=== PATIENT | female | born 1990 | race Two or more races ===

== ENCOUNTER 2016-12-08 21:59 | Emergency (ER) | payer MEDICAID ==
[~2016-12-08] VITALS: Ht 157.5 cm; Wt 54.4 kg
[2016-12-08 22:04] VITALS: BP 132/88
== END 2016-12-09 01:51 | disposition left against medical advice (07) ==
LOC: EDBD 21:59 → ER 22:02
DX: M25.572 Pain in left ankle and joints of left foot (principal); X58.XXXA Exposure to other specified factors, initial encounter; Y93.02 Activity, running; Y99.8 Other external cause status; Y92.59 Other trade areas as the place of occurrence of the external cause; Z53.21 Procedure and treatment not carried out due to patient leaving prior to being seen by health care provider
CPT/HCPCS: 81025

== ENCOUNTER 2018-09-19 11:23 | Inpatient (IN) | payer MEDICAID ==
[~2018-09-19] VITALS: Ht 165.1 cm; Wt 52.3 kg
[~2018-09-19 11:23] MED LIST: CALC0.5C PO; LEVO112T4 PO; MAGN400T5 PO
[2018-09-19] MEDS ORDERED: ONDANSETRON HCL 4 MG/2 ML VIAL IV ONE (11:45)
[2018-09-19] MEDS ORDERED: MORPHINE SULFATE 4 MG/ML SYR/VIAL IV ONE ×2 (11:45→14:30)
[2018-09-19] MEDS ORDERED: SODIUM CHLORIDE 0.9% 1,000 ML IV ONE (11:45)
[2018-09-19 12:38] LABS: Basophils # (auto) 0 uL; Eosinophils # (auto) 0.1 uL; Hemoglobin 11.6 g/dL (12.2-16.2); Monocytes # (auto) 0.2 uL; Neutrophils # (auto) 2.3 uL; White Blood Cell 4.9 10^3/uL (4.4-10.8)
[2018-09-19 12:41] LABS: Eosinophils % (auto) 1.2 % (0.0-7.0); Hematocrit 36.1 % (36.0-46.0); Lymphocytes # (auto) 2.4 uL; Lymphocytes % (auto) 48.1 % (10.0-50.0); Mean Corpuscular Hemoglobin 24.9 pg (28.0-32.0); Mean Corpuscular Volume 77.7 fL (80.0-100.0); Monocytes % (auto) 3.8 % (0.0-12.0); Neutrophils % (auto) 45.9 % (37.0-80.0); Nucleated Red Blood Cells % 0.1 %; Platelet Count (auto) 187 10^3/uL (140-450); Red Blood Cells 4.65 10^6/uL (4.0-5.20); Red Cell Distribution Width 16.9 % (11.8-14.3)
[2018-09-19 13:53] LABS: Chloride 103 mmol/L (98-107); Potassium 3.6 mmol/L (3.5-5.1); Sodium 140 mmol/L (136-145)
[2018-09-19 14:14] LABS: Alanine Aminotransferase 23 U/L (13-56); Alkaline Phosphatase 127 U/L (45-117); Anion Gap 14 (5-15); Aspartate Aminotransferase 22 U/L (15-37); BUN/Creatinine Ratio 14.5; Bilirubin, Total 0.5 mg/dL (0.2-1.0); Blood Urea Nitrogen 12 mg/dL (7-18); Carbon Dioxide 23 mmol/L (21-32); GFR African American 104 mL/min; GFR Non-African American 86 mL/min; Glucose 78 mg/dL (74-106); Total Protein 7.5 g/dL (6.4-8.2)
[2018-09-19 14:22] LABS: Calcium 5.9 mg/dL (8.5-10.1)
[2018-09-19] MEDS ORDERED: CALCIUM GLUC 4.65meq/50ml D5AE 50 ML IV ONE ×2 (14:30→18:15)
[2018-09-19] MEDS ORDERED: MORPHINE SULF INJ 2 MG/ML SYRINGE 1ML IV PRN (15:00)
[2018-09-19] MEDS ORDERED: LEVOTHYROXINE SODIUM 50 MCG TAB PO ONE (15:00)
[2018-09-19] MEDS: CALCIUM ACETATE 667 MG CAP PO SCH ×2 (18:58→22:06)
[2018-09-19 22:00] VITALS: BP 101/61
[2018-09-19] MEDS ORDERED: CALCITRIOL PO SCH (22:00)
[2018-09-19] MEDS ORDERED: [UNRECOGNIZED DRUG - CODE] PO (23:41)
[2018-09-19 23:54] VITALS: BP 101/61
--- NOTE | 2018-09-20 00:02 | NUR ---
Telemetry admit from [facility] admitted to Telemetry unit after SBAR received. Patient oriented to Ashley Nogueira RN primary RN, unit, room, bed, and unit policies regarding patient care and visiting hours. Patient now on continuous telemetry monitoring, tele box # 30 and telemetry reading on arrival to unit is SR. Patient weighed by bedscale and encouraged to call if they need something. All questions and concerns addressed, patient verbalized understanding, will continue to monitor Note: []
--- NOTE | 2018-09-20 00:10 | NUR ---
Patient complained of tingling sensation that is coming back again on her right arm. Paged hospitalist by MARGARET Francis, awaiting call back
--- NOTE | 2018-09-20 00:55 | NUR ---
Hospitalist Simeon called back, received order for Stat BMP. Informed Lab of the new order
[2018-09-20 02:00] LABS: BUN/Creatinine Ratio 11.4; Calcium 6.2 mg/dL (8.5-10.1); Potassium 3.6 mmol/L (3.5-5.1)
--- NOTE | 2018-09-20 02:00 | NUR ---
Paged hospitalist to relay lab result, awaiting call back
--- NOTE | 2018-09-20 02:45 | NUR ---
Hospitalist Simeon called back and updated on patient's status. Relayed result of Calcium, received new order to give 2 gm Calcium Gluconate IV x1, acknowledged and read back, will carry out order
[2018-09-20] MEDS ORDERED: CALCIUM GLUC 4.65meq/50ml D5AE 50 ML IV ONE ×3 (03:00→23:15)
[2018-09-20 05:00] VITALS: BP 94/64
[2018-09-20] MEDS: LEVOTHYROXINE SODIUM 50 MCG TAB PO SCH (05:50)
--- NOTE | 2018-09-20 08:00 | NUR ---
Morning note patient resting in bed with eyes closed, respirations even and unlabored, no distress noted. Fall precautions in place with call light within reach. Will continue to monitor q1hr & PRN.
[2018-09-20] MEDS: MAGNESIUM OXIDE 400 MG TAB PO SCH (09:53)
[2018-09-20] MEDS: CALCIUM ACETATE 667 MG CAP PO SCH (09:54)
[2018-09-20 11:05] VITALS: BP 100/52
--- NOTE | 2018-09-20 11:21 | NUR ---
Spoke with hospitalist - Dr. Watson updated MD. MD verbalized understanding. Orders received and read back to verify.
[2018-09-20] MEDS ORDERED: MORPHINE SULF INJ 2 MG/ML SYRINGE 1ML IV PRN (11:30)
--- NOTE | 2018-09-20 11:54 | NUR ---
MD was at bedside - Dr. Vanessa VALLADARES to place orders. Patient to follow up with MD outpatient. Patient aware.
[2018-09-20] MEDS ORDERED: ERGOCALCIFEROL 50,000 UNIT(1.25MG) CAP PO SCH ×2 (12:00→12:15)
[2018-09-20] MEDS: HYDROcodone-ACET 5/325MG TAB PO PRN (12:12)
[2018-09-20 15:06] VITALS: BP 93/65
--- NOTE | 2018-09-20 15:50 | NUR ---
was at bedside - Dr. Watson This RN was at bedside.
[2018-09-20] MEDS: CALCIUM CARB 500 MG CHEW TAB PO SCH ×2 (16:02→22:06)
[2018-09-20 16:59] VITALS: BP 97/59
--- NOTE | 2018-09-20 18:47 | NUR ---
closing note Patient resting in bed with even and unlabored respirations, no distress noted. Visitor at bedside.
--- NOTE | 2018-09-20 19:15 | NUR ---
Care endorsed to MARGARET Roberts.
--- NOTE | 2018-09-20 20:45 | NUR ---
Patient is complaining of tingling sensation on both arms. Patient and family are complaining about the Calcium dose, and that she's not getting the same dose of 8000mg a day. Will refer to
[2018-09-20] MEDS ORDERED: CALC500C3 PO (20:53)
[2018-09-20] MEDS: NITROGLYCERIN 0.4 MG SL TAB SL PRN ×3 (21:55→22:15)
--- NOTE | 2018-09-20 21:55 | NUR ---
Patient complained of chest pain and nausea and continuous tingling sensation on both arms. V/S taken and EKG done. Paged Dr. Watson, awaiting call back
[2018-09-20 22:00] VITALS: BP 103/70
[2018-09-20] MEDS ORDERED: CALCIUM CARB 500 MG CHEW TAB PO SCH (22:00)
--- NOTE | 2018-09-20 22:00 | NUR ---
Spoke to Dr. Watson and updated on patient's status. Received new order at this time, read back and acknowledged, will carry out order
--- NOTE | 2018-09-20 22:15 | NUR ---
Chest pain of patient relieved after 3 doses of NTG, will continue to monitor
[2018-09-20] MEDS: ONDANSETRON HCL 4 MG/2 ML VIAL IV PRN (22:30)
[2018-09-20 22:43] LABS: Anion Gap 12 (5-15); BUN/Creatinine Ratio 13.3; Blood Urea Nitrogen 12 mg/dL (7-18); Calcium 6.1 mg/dL (8.5-10.1); Carbon Dioxide 26 mmol/L (21-32); Chloride 103 mmol/L (98-107); GFR African American 95 mL/min; GFR Non-African American 78 mL/min; Glucose 87 mg/dL (74-106); Potassium 3.6 mmol/L (3.5-5.1); Sodium 141 mmol/L (136-145)
--- NOTE | 2018-09-20 23:00 | NUR ---
Spoke to Dr. Watson and updated on patient's status and latest lab results. Received new order to give 1 bag of Calcium Gluconate x1 at this time, acknowledged and read back, will continue care
[2018-09-21] VITALS (9 sets, daily range): BP systolic 94–113; BP diastolic 61–81
[2018-09-21] MEDS: NITROGLYCERIN 0.4 MG SL TAB SL PRN (00:55)
[2018-09-21] MEDS: LEVOTHYROXINE SODIUM 50 MCG TAB PO SCH (06:13)
[2018-09-21 07:14] LABS: Albumin 3.5 g/dL (3.4-5.0); Anion Gap 9 (5-15); Blood Urea Nitrogen 15 mg/dL (7-18); Calcium 6.1 mg/dL (8.5-10.1); Carbon Dioxide 26 mmol/L (21-32); Chloride 105 mmol/L (98-107); Glucose 84 mg/dL (74-106); Potassium 3.7 mmol/L (3.5-5.1); Sodium 140 mmol/L (136-145)
[2018-09-21 07:22] LABS: Alanine Aminotransferase 20 U/L (13-56); Alkaline Phosphatase 113 U/L (45-117); Aspartate Aminotransferase 25 U/L (15-37); BUN/Creatinine Ratio 17.9; Bilirubin, Total 0.3 mg/dL (0.2-1.0); GFR African American 102 mL/min; GFR Non-African American 85 mL/min; Phosphorus 6.1 mg/dL (2.5-4.90); Total Protein 7.1 g/dL (6.4-8.2)
[2018-09-21] MEDS ORDERED: CALCITRIOL 0.25 MCG CAP PO SCH (10:00)
[2018-09-21] MEDS: MAGNESIUM OXIDE 400 MG TAB PO SCH (10:44)
[2018-09-21] MEDS ORDERED: CALCIUM GLUC 4.65meq/50ml D5AE 50 ML IV ONE ×4 (11:00→17:00)
--- NOTE | 2018-09-21 15:49 | NUR ---
CALCIUM (LABS) ORDERED PER DR. MEDRANO
--- NOTE | 2018-09-21 16:00 | NUR ---
Charge, Claudia ROBLES, notified of the patient's recurring tetany. Claudia to call Dr. Watson for orders for possible transfer to ICU for calcium drip
[2018-09-21] MEDS: CALCIUM CARB 500 MG CHEW TAB PO SCH ×2 (16:05→19:42)
--- NOTE | 2018-09-21 16:30 | NUR ---
Received orders from DR. Mendez for repeat calcium glucanate x2. Will place orders, administer and continue to monitor.
[2018-09-21] MEDS: ONDANSETRON HCL 4 MG/2 ML VIAL IV PRN (16:33)
--- NOTE | 2018-09-21 17:20 | NUR ---
Report given to HOLE DIGGER OPERATORCoco
--- NOTE | 2018-09-21 17:20 | NUR ---
REPORT Received report from Twyla ROBLES, who will bring this patient down to room 103.
--- NOTE | 2018-09-21 18:00 | NUR ---
Patient to ICU bed 103. Transfer without incident. Patient stable during transfer.
--- NOTE | 2018-09-21 18:00 | NUR ---
RECEIVED PATIENT Received patient into room 103 patient transferred to ICU bed and connected to bedside monitor. Patient alert and oriented X 4, speech appropriate, with right hand clenched and unable to squeeze hand. Left hand customer engineer strong. Sinus rhythm in the 70's on bedside monitor, pulses palpable on upper/lower extremities with no edema observed. Patient on room air sating in the high 90's. Abdomen soft, nontender, and non distended with bowel sounds present. IV to the right forearm 22g: good blood return and flushes easily infusing Calcium gluconate per MD orders. Skin intact. Bed at lowest position and call light within reach. Will continue to monitor patient closely.
[2018-09-21] MEDS: CALCIUM GLUC 4.65meq/50ml D5AE 50 ML IV SCH ×3 (19:43→22:48)
--- NOTE | 2018-09-21 20:00 | NUR ---
OPEN ASSUMED CARE OF FEMALE PT A&O X 4. PT SB MID 50'S TO SR 60'S ON EXERCISER HORSE. PT ON ROOM AIR SATS 97%. PT NOW HAS FULL ROM AND GOOD HAND MONEY MARKET DEALER VINICIUS. DENIES ANY NUMBNESS OR TINGLING. PT CURRENTLY RECEIVING CA GLUCONATE IVP INFUSING INTO 22 G IV TO R. F/A B&P. PT AMBULATES TO BATHROOM WITH STANDBY ASSIST. PT DENIES PAIN. BED IN LOWEST LOCKED POSITION. SIDE RAILS UP X 2. PT EDUCATED TO USE CALL LIN PRIOR TO AMBULATION. WILL CONTINUE TO MONITOR.
--- NOTE | 2018-09-21 20:45 | NUR ---
TO UNIT FOR VISIT.
--- NOTE | 2018-09-21 21:00 | NUR ---
NUTRITION PT STATES SHE HAS HAD VERY POOR APPETITE PAST COUPLE OF DAYS. PT BROUGHT FOOD PREFERENCE TO PT. PT CONSUMED 75% OF MEAL WITH NO COMPLAINTS OF NAUSEA.
--- NOTE | 2018-09-21 21:50 | NUR ---
ACTIVITY PT AMBULATED WITH ASSIST TO TOILET. PT STATES ABLE TO URINATE WITH NO DIFFICULTY. PT ASSISTED BACK TO BED. RECONNECTED TO MONITORING. CALL LIN IN REACH. PT AT BEDSIDE.
[2018-09-21] MEDS: CALCITRIOL 0.25 MCG CAP PO SCH (22:17)
[2018-09-22] VITALS (23 sets, daily range): BP systolic 80–118; BP diastolic 44–71
[2018-09-22] MEDS: CALCIUM GLUC 4.65meq/50ml D5AE 50 ML IV SCH (00:35)
--- NOTE | 2018-09-22 01:30 | NUR ---
REST PT SLEEPING RR EVEN UNLABORED.
[2018-09-22 01:59] LABS: Albumin 3.7 g/dL (3.4-5.0); BUN/Creatinine Ratio 12.1; Calcium 8.6 mg/dL (8.5-10.1); Potassium 3.7 mmol/L (3.5-5.1)
[2018-09-22 02:02] LABS: Bilirubin, Total 0.5 mg/dL (0.2-1.0); Total Protein 7.4 g/dL (6.4-8.2)
--- NOTE | 2018-09-22 05:30 | NUR ---
DR PASCAL CALL DR PASCAL UPDATED ON CURRENT CA+ LEVEL, AND PHOSPHORUS LEVEL. UPDATED REGARDING PT CONDITION THROUGH THE NIGHT. ORDERS RECEIVED/READ BACK AND VERIFIED.
[2018-09-22] MEDS: LEVOTHYROXINE SODIUM 50 MCG TAB PO SCH (05:54)
--- NOTE | 2018-09-22 06:40 | NUR ---
IV REMOVAL/IV START PT IV TO R. F.A. TENDER PINK TO AREA. NS 10ML/HR WAS INFUSING. D/C'D CATH INTACT. NEW IV START TO L. F/A 22 G AFTER 1 ATTEMPT ESTABLISHED. PT TOLERATED WELL.
[2018-09-22 07:07] LABS: Potassium 4.1 mmol/L (3.5-5.1)
[2018-09-22 07:14] LABS: Albumin 3.6 g/dL (3.4-5.0); BUN/Creatinine Ratio 12.9; Bilirubin, Total 0.4 mg/dL (0.2-1.0); Calcium 6.9 mg/dL (8.5-10.1); Total Protein 7.3 g/dL (6.4-8.2)
--- NOTE | 2018-09-22 08:20 | NUR ---
MD Dr. Mendez paged at [phone] spoke with Breana and states " Will page doctor." Awaiting for to call back.
[2018-09-22] MEDS: CALCIUM CARB 500 MG CHEW TAB PO SCH (08:25)
--- NOTE | 2018-09-22 09:20 | NUR ---
MD Dr. Mendez paged for a second time at [phone] spoke with Sweta and states " Will get a hold of doctor." Awaiting for to call back.
[2018-09-22] MEDS ORDERED: CALCIUM GLUC 4.65meq/50ml D5AE 50 ML IV ONE ×5 (09:45→18:30)
[2018-09-22] MEDS: MAGNESIUM OXIDE 400 MG TAB PO SCH (10:18)
[2018-09-22] MEDS: CALCITRIOL 0.25 MCG CAP PO SCH ×2 (10:18→21:52)
--- NOTE | 2018-09-22 15:25 | NUR ---
MD Dr. Mendez at bedside updated on patient condition with no new orders received. MD spoke to patient and patient family, whom are at bedside, questions/concerns answered.
[2018-09-22] MEDS ORDERED: CALCIUM ACETATE 667 MG CAP PO PRN (15:30)
[2018-09-22 16:12] LABS: BUN/Creatinine Ratio 12.3; Calcium 7.2 mg/dL (8.5-10.1); Potassium 3.7 mmol/L (3.5-5.1)
--- NOTE | 2018-09-22 16:40 | NUR ---
MD Dr. Mendez pagekwadwo and spoke to Suzanne who will paged to call this RN.
--- NOTE | 2018-09-22 17:15 | NUR ---
MD Dr. Watson at bedside updated on patient condition with no new orders received. MD spoke to patient regarding plan of care and questions/concerns answered by MD.Will continue to monitor patient at this time.
--- NOTE | 2018-09-22 17:45 | NUR ---
Spoke to Dr. Mendez aware of Calcium level of 7.2 received new orders, this RN to input into system. Will carry out orders.
[2018-09-22] MEDS: CALCIUM ACETATE 667 MG CAP PO SCH (18:08)
--- NOTE | 2018-09-22 19:30 | NUR ---
Opening Shift Note Assumed care of patient, awake and alert, sitting on bed, just finished dinner. Breathing on RA, even and nonlabored, No S/S of distress/SOB. C/O pain at the frontal head area then radiated to left cheek, maxilar then occiput area /, will administer pain medicine as order and continue monitoring. Bed in low position, call light within reach, all alarms are audible, fall and safety precaution in place. Instructed on POC and to call for assist PRN, will continue to monitor for changes Q1hr and PRN.
[2018-09-22] MEDS: HYDROcodone-ACET 5/325MG TAB PO PRN (20:01)
--- NOTE | 2018-09-22 21:30 | NUR ---
Patient bathe/linen change Patient assisted with sponge/basin bath. Skin integrity assessed for any changes, no new changes. Mouth care done by self, slightly gun bleed after brushing, Pt stated that she brushed slightly hard. Partial linens changed. Patient ambulated to the toilet near the bed by self, w/o incident. Continue care.
[2018-09-23] VITALS (31 sets, daily range): BP systolic 91–135; BP diastolic 47–95
[2018-09-23 04:08] LABS: Basophils # (auto) 0.1 uL; Eosinophils # (auto) 0.1 uL; Hemoglobin 11.4 g/dL (12.2-16.2); Monocytes # (auto) 0.4 uL; Neutrophils # (auto) 2.5 uL
[2018-09-23 04:11] LABS: Basophils % (auto) 0.9 % (0.0-2.0); Hematocrit 33.8 % (36.0-46.0); Lymphocytes # (auto) 3.7 uL; Mean Corpuscular Hemoglobin 26.3 pg (28.0-32.0); Mean Corpuscular Hgb Conc. 33.8 g/dL (32.0-36.0); Mean Corpuscular Volume 77.8 fL (80.0-100.0); Monocytes % (auto) 5.8 % (0.0-12.0); Neutrophils % (auto) 37.3 % (37.0-80.0); Nucleated Red Blood Cells % 0.4 %; Platelet Count (auto) 182 10^3/uL (140-450); Red Blood Cells 4.35 10^6/uL (4.0-5.20); Red Cell Distribution Width 17.4 % (11.8-14.3); White Blood Cell 6.7 10^3/uL (4.4-10.8)
[2018-09-23 04:58] LABS: Albumin 3.6 g/dL (3.4-5.0); Calcium 6.9 mg/dL (8.5-10.1); Potassium 3.8 mmol/L (3.5-5.1)
[2018-09-23 05:03] LABS: BUN/Creatinine Ratio 17.7; Bilirubin, Total 0.3 mg/dL (0.2-1.0); Phosphorus 6.9 mg/dL (2.5-4.90)
--- NOTE | 2018-09-23 06:10 | NUR ---
Hypocalcemia Ca6.9, PO4 6.9 from AM LABs. Paged and left message to Operational Intelligence Officer medical sales consultant. 06.30am Dr. Flowers called back. Ordered 1. to give 4gm of calcium gluconate IV x1 2. to increase Calcitrol 3 mcg po bid 3. Repeat Ca level in pm TORB and verified correct.
[2018-09-23] MEDS: LEVOTHYROXINE SODIUM 50 MCG TAB PO SCH (06:19)
[2018-09-23] MEDS: CALCIUM GLUC 4.65meq/50ml D5AE 50 ML IV SCH ×4 (07:02→12:49)
--- NOTE | 2018-09-23 08:10 | NUR ---
ASSESSMENT COMPLETED, SEE INTERVENTIONS. A/O X4. DENIES ANY PAIN OR SYMPTOMS OF RESPIRATORY DISTRESS WITH NO SIGNS ASSESSED. C/O OF SLIGHT TINGLING IN LEFT HAND/FINGERS. FIRST BAG OF CALCIUM IVBP FROM RECENT ORDER INFUSING. HR SR. BED IN LOW POSITION, CALL LIGHT IN REACH.
[2018-09-23] MEDS: CALCIUM ACETATE 667 MG CAP PO SCH ×3 (08:43→18:26)
[2018-09-23] MEDS ORDERED: ERGOCALCIFEROL 50,000 UNIT(1.25MG) CAP PO SCH (09:00)
[2018-09-23] MEDS ORDERED: CALCIUM GLUC 4.65meq/50ml D5AE 50 ML IV ONE ×3 (09:00)
[2018-09-23] MEDS ORDERED: CALCITRIOL 0.25 MCG CAP PO SCH (10:00)
[2018-09-23] MEDS: MAGNESIUM OXIDE 400 MG TAB PO SCH (10:20)
--- NOTE | 2018-09-23 11:23 | NUR ---
PARENTS AT BEDSIDE, DIET TEACHING PROVIDED REGARDING LOW PHOSPHOROUS DIET AND GAMEWELL OPERATOR CONSULT PLACED PER PROTOCOL AND PER PATIENT REQUEST.
--- NOTE | 2018-09-23 12:20 | NUR ---
RN ALREADY AT BEDSIDE ASSESSING IV. DR MEDRANO AT BEDSIDE, PATIENT REQUESTING THAT HER OUTPATIENT EAR MACHINE OPERATOR STATED SHE NEEDS TO BE ON CONTINUOUS CALCIUM GTT. PER DR MEDRANO RN TO CALL DR PIÑA TO VERIFY CONTINUOUS CALCIUM GTT. PER DR MEDRANO IF NO CONTINUOUS CALCIUM GTT OK TO TRANSFER TO [facility] IF NO CONTINUOUS CALCIUM GTT ORDER. DR MEDRANO EXAMINED PATIENT. DR YBARRA LEFT FA 22G IV SHOWING SING Addendum: 09/23/18 at 1239 by Jasper Sinclair RN SIGNS OF INFILTRATION, IV IMMEDIATELY STOPPED BY RN AND IV DISCONTINUED WITH CATHETER INTACT AND ELEVATED ON PILLOW.
--- NOTE | 2018-09-23 12:34 | NUR ---
PATIENT DID NOT WANT CONTINUOUS CALCIUM GTT PER HER REQUEST EARLIER (SEE PREVIOUS NOTE) DR PIÑA NOT PAGED AND [facility] ORDER PLACED PER DR MEDRANO ORDER, PATIENT AWARE WE WILL RECHECK CALCIUM LEVEL AT 1800. HEAT PACK APPLIED TO LEFT FA POSSIBLE INFILTRATION SITE THAT IS ABOUT A GOLF BALL SIZED RED/SWOLLEN AREA. PHARMACIST WAS NOTIFIED AND CHECKING TO SEE IF ANY MEDICATION CAN BE PLACED ON SITE AND WILL CALL BACK. Addendum: 09/23/18 at 1255 by Jasper Sinclair RN HEAT PACK NOT APPLIED YET ON BEDSIDE TABLE, PHARMACY STATED TO PLACE ICE PACK INSTEAD.
--- NOTE | 2018-09-23 12:58 | NUR ---
SPOKE WITH DR SANTOS OVER PHONE, IS PATIENT'S OUTPATIENT COURT INTERPRETER, PER PATIENT REQUEST OK TO GIVE DR INFORMATION REGARDING MEDICATIONS ORDERED/CALCIUM LEVEL. REASSURED PATIENT "THAT EVERYTHING IS GOING SHOULD".
--- NOTE | 2018-09-23 14:45 | NUR ---
NUTRITION CONSULT/ASSESSMENT NOTES Please refer to link notes of nutrition screen form filed under the intervention section of the plan of care for further details. Est. Needs: 1550 kcal to 1800 kcal (30-35 kcal/kgBW), 52 gms to 62 gms pro (1.0-1.2 gms/kgBW). Will continue to monitor pertinent labs and reassess nutrient need prn Thank you for this consult. Addendum: 09/23/18 at [address] Amended: Links added.
--- NOTE | 2018-09-23 16:00 | NUR ---
LEFT FA IV POSSIBLE INFILTRATION SITE STILL RED/SWOLLEN BUT LESS SWOLLEN NOTED EARLIER, C/O TOLERABLE PAIN AT SITE. PATIENT CONTINUES TO PUT ICE PACK ON SITE FOR 20 MIN Q1H.
--- NOTE | 2018-09-23 19:20 | NUR ---
open note received report from day rn, assumed care of female pt, sitting in bed talking on cell phone. pt connected to icu monitors, vs wnl, on room air, respirations equal and unlabored. pt has iv l ac 22g . iv flushes it is patent, dressing is dry and clean, no ss of redness or swelling at this time. no indication of pain observed, no ss of distress at this time. pt is able to ambulate. hob 30*, bed is in lowest position, wheels locked,2 side rails up. pt educated on use of call light and to use it when need of assistance of anything, pt verbalized understanding. pt is in full view of nursing station, will continue to care for and monitor.
--- NOTE | 2018-09-23 22:15 | NUR ---
visitor at bedside
[2018-09-23] MEDS: CALCITRIOL 0.25 MCG CAP PO SCH (22:16)
--- NOTE | 2018-09-23 23:50 | NUR ---
gave report to nadege nicole Addendum: 09/24/18 at 0025 by IVONNE MCKENZIE RN RN report given to Flora BRICENO RN
[2018-09-24] VITALS: BP 94/62
--- NOTE | 2018-09-24 00:23 | NUR ---
pt transferred to nadege pt transferred to nadege, via wheel chair attached to hospital monitor. no ss of distress, pt vs wnl. all belongings transported with pt.
[2018-09-24] MEDS: LEVOTHYROXINE SODIUM 50 MCG TAB PO SCH (06:34)
--- NOTE | 2018-09-24 07:39 | NUR ---
Pt has remained stable since transfer to [facility]. Denies symptoms of any cramping. States forearm feels better from infiltration and there is currently no redness or swelling. Report given to AM shift, care endorsed.
--- NOTE | 2018-09-24 07:45 | NUR ---
RECEIVED REPORT PATIENT RESTING IN BED, DENIES PAIN OF CRAMPING AT THIS TIME. STABLE VITALS. WILL CONTINUE TO MONITOR CLOSELY
[2018-09-24] MEDS: CALCIUM ACETATE 667 MG CAP PO SCH ×2 (08:00→13:04)
[2018-09-24 08:18] VITALS: BP 93/61
[2018-09-24 08:22] LABS: Calcium 6.4 mg/dL (8.5-10.1); Potassium 4.1 mmol/L (3.5-5.1)
[2018-09-24 08:25] LABS: BUN/Creatinine Ratio 17.3
--- NOTE | 2018-09-24 09:28 | NUR ---
PAGED DR PASCAL FOR LOW CA OF 6.4 AWAITING ORDERS
[2018-09-24] MEDS: MAGNESIUM OXIDE 400 MG TAB PO SCH (10:23)
[2018-09-24] MEDS: CALCITRIOL 0.25 MCG CAP PO SCH ×2 (10:23→23:01)
--- NOTE | 2018-09-24 11:00 | NUR ---
DR MEDRANO AT BEDSIDE DISCUSSED PLAN OF CARE WITH PATIENT
[2018-09-24] MEDS ORDERED: ONDANSETRON HCL 4 MG/2 ML VIAL IV PRN (11:15)
--- NOTE | 2018-09-24 12:10 | NUR ---
PATIENT'S FAMILY AT BEDSIDE
[2018-09-24] MEDS: CALCIUM GLUC 4.65meq/50ml D5AE 50 ML IV SCH ×4 (12:21→16:28)
[2018-09-24 12:30] VITALS: BP 97/61
--- NOTE | 2018-09-24 13:01 | NUR ---
INCENTIVE SPIROMETER PATIENT'S LUNG BASES DIMINISHED. PATIENT STATES WHEN SHE TAKES DEEP BREATH, SOMETIMES MAKES HER COUGH AND RIB CAGE HURTS. RN GAVE INCENTIVE SPIROMETER TO PROMOTE LUNG EXPANSION. RN EDUCATED PATIENT USAGE AND ASKED TO DEMONSTRATE. PATIENT AT BEST EFFORT ONLY ABLE TO REACH 500ML. ENCOURAGED TO CONTINUE TO USE EVERY HOUR WHILE AWAKE. WILL CONTINUE TO MONITOR
[2018-09-24] MEDS ORDERED: CALCIUM CARB 500 MG CHEW TAB PO PRN (15:30)
[2018-09-24 15:51] VITALS: BP 101/62
--- NOTE | 2018-09-24 16:05 | NUR ---
OPENING SHIFT RECEIVED REPORT FROM DAY SHIFT RN. ASSUMED CARE OF PATIENT. PATIENT IN BED SLEEPING WITH NO SIGNS OR SYMPTOMS OF SOB, PAIN OR DISTRESS. CURRENTLY ON ROOM AIR, 02 SAT - 99%. LEFT ANTECUBITAL IV - CLEAN/DRY/INTACT. BED IN LOWEST POSITION, SIDE RAILS UP X2, CALL LIGHT WITHIN REACH. WILL CONTINUE TO MONITOR. Addendum: 09/24/18 at 1629 by ZORAIDA MARKS RN RN LEFT FOREARM IV
[2018-09-24] MEDS: CALCIUM CARB 500 MG CHEW TAB PO SCH ×2 (18:34→22:00)
[2018-09-24 19:02] LABS: BUN/Creatinine Ratio 11.4; Calcium 8.9 mg/dL (8.5-10.1); Potassium 3.8 mmol/L (3.5-5.1)
--- NOTE | 2018-09-24 19:10 | NUR ---
REPORT GIVEN TO MARNIE ROBLES. ENDORSED CARE OF PATIENT.
[2018-09-25 06:00] LABS: Calcium 8.5 mg/dL (8.5-10.1)
[2018-09-25 06:02] LABS: BUN/Creatinine Ratio 14.3; Phosphorus 5.3 mg/dL (2.5-4.90)
[2018-09-25] MEDS: CALCIUM CARB 500 MG CHEW TAB PO SCH ×4 (07:01→22:37)
[2018-09-25] MEDS: LEVOTHYROXINE SODIUM 50 MCG TAB PO SCH (07:01)
[2018-09-25 08:00] VITALS: BP 100/64
--- NOTE | 2018-09-25 08:00 | NUR ---
Opening Shift Note Assumed care of patient, awake and alert. Patient A&Ox4. Patient on the monitor, on room air, VS WNL. IV left AC 22G saline locked, patent, clean, dry, and intact. No S/S of distress/SOB or pain. Bed locked and in the lowest position, side rails up x2, call light with in reach. Instructed on POC and to call for assist PRN. Will continue to monitor.
--- NOTE | 2018-09-25 08:16 | NUR ---
Pt remained stable this shift. No S/S of distress. Pt ambulated this shift and often was observed using incentive spirometer. Report given, care endorsed.
--- NOTE | 2018-09-25 08:30 | NUR ---
Patient sitting up in bed eating breakfast independently. Will continue to monitor.
--- NOTE | 2018-09-25 09:15 | NUR ---
Dr. Flowers at bedside.
--- NOTE | 2018-09-25 10:39 | NUR ---
Medication dosages, usages, and side effects explained to patient. Patient verbalized understanding. Will continue to monitor.
[2018-09-25] MEDS: CALCITRIOL 0.25 MCG CAP PO SCH ×2 (10:54→22:37)
[2018-09-25] MEDS: MAGNESIUM OXIDE 400 MG TAB PO SCH (10:54)
--- NOTE | 2018-09-25 11:15 | NUR ---
Dr. Watson at bedside.
[2018-09-25 11:50] VITALS: BP 108/80
--- NOTE | 2018-09-25 12:30 | NUR ---
Patient sitting up in bed eating lunch. Will continue to monitor.
--- NOTE | 2018-09-25 15:04 | NUR ---
Patient resting at this time. No S/S of pain/SOB or distress noted. Will continue to monitor.
[2018-09-25 15:53] VITALS: BP 108/69
--- NOTE | 2018-09-25 16:52 | NUR ---
Patient sitting up in bed visiting with family. Will continue to monitor.
--- NOTE | 2018-09-25 18:33 | NUR ---
End of shift note: Patient sitting up in bed talking with family. Patient A&Ox4. Patient on the monitor, on room air, VS WNL. IV left AC 22G saline locked, patent, clean, dry, and intact. No S/S of distress/SOB or pain. Bed locked and in the lowest position, side rails up x2, call light with in reach. Will continue to monitor. Report to be given to mine shifter RN.
[2018-09-25 19:50] VITALS: BP 116/66
[2018-09-26] VITALS: BP 115/56
[2018-09-26 04:00] VITALS: BP 102/68
[2018-09-26] MEDS: CALCIUM CARB 500 MG CHEW TAB PO SCH ×2 (05:39→12:00)
[2018-09-26] MEDS: LEVOTHYROXINE SODIUM 50 MCG TAB PO SCH (05:39)
--- NOTE | 2018-09-26 07:35 | NUR ---
Opening Shift Note Assumed care of patient, awake and alert. No S/S of distress/SOB or pain or cramping. Instructed on POC and to call for assist PRN, will continue to monitor for changes Q1hr and PRN.
[2018-09-26 08:00] VITALS: BP 105/71
--- NOTE | 2018-09-26 09:00 | NUR ---
Breakfast tray provided, but patient doesn't want to eat now, will continue to monitor and care.
[2018-09-26] MEDS: MAGNESIUM OXIDE 400 MG TAB PO SCH (10:33)
--- NOTE | 2018-09-26 11:06 | NUR ---
Patient still sleeping, vital sign stable.
--- NOTE | 2018-09-26 11:30 | NUR ---
Families visit her at this time, brought food for patient, patient sitting and talking to her families.
[2018-09-26 11:50] VITALS: BP 135/88
--- NOTE | 2018-09-26 12:30 | NUR ---
Provided the information about high phosphate foods to avoid for patient (Negative Cleaner provided in the chart).
--- NOTE | 2018-09-26 12:44 | NUR ---
Patient stated that she called her primary doctor's office and got the appointment on 09/30/18 at 2.15pm.
--- NOTE | 2018-09-26 14:50 | NUR ---
Patient talking to her kid on the phone, no complaining of pain or cramping.
[2018-09-26 15:45] VITALS: BP 120/77
--- NOTE | 2018-09-26 15:50 | NUR ---
Dr. Watson at the bedside, seen and examined patient at this time, plan of care discussed with patient, discussed about medication and monitor Labs as order, and follow up with PCP. Patient made aware, verbalized understanding. Will discharge home today.
[2018-09-26 15:59] VITALS: BP 120/77
--- NOTE | 2018-09-26 16:42 | NUR ---
Discharge instructions given as ordered. Encourage to follow up with PMD as instructed. All questions and concerns addressed. Patient verbalized understanding. Medication reconciliation form completed and copy given to patient. IV removed with catheter intact, pressure dressing applied. Patient stated that She has the appointment to see her Primary doctor on 09/29/18 at 2.15 pm, and the appointment to see Dr. Pabon on 09/30/18 at 2.15 pm. Patient taken to vehicle via wheelchair with all personal belongings, accompanied by staff and family member. No distress noted at time of departure.
== END 2018-09-26 16:15 | disposition home or self-care (01) | DRG 425 ==
LOC: EDBD 11:23 → ER 11:24 → TELE 14:47 → MERGE 14:47 → CENTRAL 21:00 → TELE-CENTR 23:28 → ICU WEST 09-21 18:02 → DOU IN ICU 09-24 00:25
PROVIDERS: ADMIT Internal Medicine; ATTEND Internal Medicine
DX: E83.51 Hypocalcemia (principal); E11.649 Type 2 diabetes mellitus with hypoglycemia without coma; E89.0 Postprocedural hypothyroidism; E83.39 Other disorders of phosphorus metabolism; E87.6 Hypokalemia; R07.89 Other chest pain; Z83.3 Family history of diabetes mellitus; Z79.899 Other long term (current) drug therapy
CPT/HCPCS: 36415; 80048; 80053; 82306; 82310; 82330; 83735; 83970; 84100; 84439; 84443; 84484; 84702; 85025; 87081; 93005; 93306; 96361; 96365; 96375; G0378; J0610; J2405

== ENCOUNTER 2018-09-30 12:19 | Emergency (ER) | payer MEDICAID ==
[~2018-09-30] VITALS: Ht 154.9 cm; Wt 49.9 kg
[~2018-09-30 12:19] MED LIST changes: -CALC0.5C PO; +CALC500C3 PO
[2018-09-30] MEDS ORDERED: SODIUM CHLORIDE 0.9% 500 ML IVB ONE (12:35)
[2018-09-30 13:30] LABS: Basophils # (auto) 0 uL; Eosinophils # (auto) 0 uL; Monocytes # (auto) 0.4 uL; Neutrophils # (auto) 4.6 uL; Nucleated Red Blood Cells % 0.1 %; White Blood Cell 6.3 10^3/uL (4.4-10.8)
[2018-09-30 13:32] LABS: Basophils % (auto) 0.4 % (0.0-2.0); Eosinophils % (auto) 0.2 % (0.0-7.0); Hematocrit 33.7 % (36.0-46.0); Hemoglobin 11.2 g/dL (12.2-16.2); Lymphocytes # (auto) 1.2 uL; Lymphocytes % (auto) 19.7 % (10.0-50.0); Mean Corpuscular Hemoglobin 26.2 pg (28.0-32.0); Mean Corpuscular Hgb Conc. 33.4 g/dL (32.0-36.0); Mean Corpuscular Volume 78.6 fL (80.0-100.0); Monocytes % (auto) 6.1 % (0.0-12.0); Neutrophils % (auto) 73.6 % (37.0-80.0); Platelet Count (auto) 165 10^3/uL (140-450); Red Blood Cells 4.28 10^6/uL (4.0-5.20); Red Cell Distribution Width 18.7 % (11.8-14.3)
[2018-09-30 13:34] LABS: Urine Bacteria NONE SEEN /hpf (None Seen); Urine Blood Negative /uL (Negative); Urine Mucus FEW (None Seen); Urine Specific Gravity 1.021 (1.001-1.035); Urine WBC 14 /hpf (0 - 5)
[2018-09-30 13:41] LABS: Magnesium 1.6 mg/dL (1.6-2.6)
[2018-09-30 13:45] LABS: Calcium 8.7 mg/dL (8.5-10.1); Potassium 3.3 mmol/L (3.5-5.1)
[2018-09-30 13:48] LABS: BUN/Creatinine Ratio 13.8; Bilirubin, Total 0.6 mg/dL (0.2-1.0); Total Protein 7.6 g/dL (6.4-8.2)
[2018-09-30] MEDS ORDERED: HYDROmorphone HCL 2 MG/ML VL IV ONE (14:15)
[2018-09-30] MEDS ORDERED: ONDANSETRON HCL 4 MG/2 ML VIAL IV ONE (14:15)
[2018-09-30 14:35] VITALS: BP 112/64
== END 2018-09-30 14:43 | disposition home or self-care (01) ==
LOC: ER 12:29
DX: N39.0 Urinary tract infection, site not specified (principal); R11.0 Nausea; Z79.899 Other long term (current) drug therapy
CPT/HCPCS: 36415; 80053; 81001; 83690; 83735; 85025; 94761; 96374; 96375; 99283; J1170; J2405; J7040

== ENCOUNTER 2018-10-04 14:25 | Emergency (ER) | payer MEDICAID ==
[~2018-10-04] VITALS: Ht 154.9 cm; Wt 49.9 kg
[2018-10-04 14:54] VITALS: BP 120/75
[2018-10-04 15:02] LABS: Eosinophils # (auto) 0.1 uL; Lymphocytes # (auto) 2.2 uL; Mean Corpuscular Hgb Conc. 33.1 g/dL (32.0-36.0); Monocytes # (auto) 0.3 uL; Neutrophils # (auto) 2.2 uL; Nucleated Red Blood Cells % 0.1 %; White Blood Cell 4.8 10^3/uL (4.4-10.8)
[2018-10-04 15:04] LABS: Basophils # (auto) 0.1 uL; Eosinophils % (auto) 1.5 % (0.0-7.0); Hematocrit 34.3 % (36.0-46.0); Hemoglobin 11.4 g/dL (12.2-16.2); Lymphocytes % (auto) 45.6 % (10.0-50.0); Mean Corpuscular Hemoglobin 26.1 pg (28.0-32.0); Mean Corpuscular Volume 78.9 fL (80.0-100.0); Monocytes % (auto) 5.7 % (0.0-12.0); Neutrophils % (auto) 46.2 % (37.0-80.0); Platelet Count (auto) 207 10^3/uL (140-450); Red Blood Cells 4.35 10^6/uL (4.0-5.20); Red Cell Distribution Width 18.2 % (11.8-14.3)
[2018-10-04 15:19] LABS: Calcium 8.2 mg/dL (8.5-10.1); Potassium 3.2 mmol/L (3.5-5.1)
[2018-10-04 15:22] LABS: BUN/Creatinine Ratio 12.5; Bilirubin, Total 0.3 mg/dL (0.2-1.0); Total Protein 7.8 g/dL (6.4-8.2)
[2018-10-04] MEDS ORDERED: CALCIUM GLUC 4.65meq/50ml D5AE 50 ML IV ONE (15:30)
[2018-10-04] MEDS ORDERED: POTASSIUM EFFERVESENT TAB 25 MEQ PO ONE (16:30)
== END 2018-10-04 16:40 | disposition home or self-care (01) ==
LOC: ER 14:45
DX: E83.51 Hypocalcemia (principal); E87.6 Hypokalemia; Z86.39 Personal history of other endocrine, nutritional and metabolic disease
CPT/HCPCS: 36415; 80053; 85025; 93005; 94761; 96365; 99284; J0610

== ENCOUNTER 2018-11-20 10:22 | Emergency (ER) | payer MEDICAID ==
[~2018-11-20] VITALS: Ht 154.9 cm; Wt 49.9 kg
[2018-11-20 11:12] LABS: Urine Bacteria NONE SEEN /hpf (None Seen); Urine Blood Negative /uL (Negative); Urine Mucus MANY (None Seen); Urine Specific Gravity 1.031 (1.001-1.035); Urine WBC 32 /hpf (0 - 5)
[2018-11-20] MEDS ORDERED: ONDANSETRON HCL 4 MG/2 ML VIAL IV ONE (11:15)
[2018-11-20] MEDS ORDERED: SODIUM CHLORIDE 0.9% 500 ML IV ONE (11:15)
[2018-11-20 11:24] LABS: Basophils # (auto) 0 uL; Eosinophils # (auto) 0 uL; Monocytes # (auto) 0.5 uL; Neutrophils # (auto) 11.9 uL
[2018-11-20 11:25] LABS: Basophils % (auto) 0.2 % (0.0-2.0); Hematocrit 34.8 % (36.0-46.0); Hemoglobin 11.2 g/dL (12.2-16.2); Lymphocytes # (auto) 1.3 uL; Lymphocytes % (auto) 9.8 % (10.0-50.0); Mean Corpuscular Hemoglobin 26.3 pg (28.0-32.0); Mean Corpuscular Hgb Conc. 32.2 g/dL (32.0-36.0); Mean Corpuscular Volume 81.5 fL (80.0-100.0); Monocytes % (auto) 3.6 % (0.0-12.0); Neutrophils % (auto) 86.4 % (37.0-80.0); Platelet Count (auto) 258 10^3/uL (140-450); Red Blood Cells 4.27 10^6/uL (4.0-5.20); Red Cell Distribution Width 16.3 % (11.8-14.3); White Blood Cell 13.7 10^3/uL (4.4-10.8)
[2018-11-20 11:36] LABS: Albumin 4.5 g/dL (3.4-5.0); Calcium 7.7 mg/dL (8.5-10.1); Potassium 3.3 mmol/L (3.5-5.1)
[2018-11-20 11:48] LABS: Bilirubin, Total 0.7 mg/dL (0.2-1.0)
[2018-11-20 13:20] VITALS: BP 99/59
== END 2018-11-20 13:24 | disposition home or self-care (01) ==
LOC: ER 10:34
DX: N39.0 Urinary tract infection, site not specified (principal); E83.51 Hypocalcemia; E86.0 Dehydration; Z79.899 Other long term (current) drug therapy
CPT/HCPCS: 36415; 80053; 81001; 85025; 94761; 96361; 96374; 99283; J2405

== ENCOUNTER 2021-06-24 12:36 | Emergency (ER) | payer MEDICAID ==
[~2021-06-24] VITALS: Ht 154.9 cm; Wt 51.7 kg
[~2021-06-24 12:36] MED LIST changes: +HYDROcodone-ACET 5/325MG TAB PO ONE; +MAGN400T40 PO; -MAGN400T5 PO
[2021-06-24 13:55] LABS: Urine Bacteria NONE SEEN /hpf (None Seen); Urine Blood 1+ /uL (Negative); Urine Mucus FEW (None Seen); Urine Specific Gravity 1.031 (1.001-1.035); Urine WBC 13 /hpf (0 - 5)
[2021-06-24 14:09] LABS: Basophils # (auto) 0 10 ^3/uL (0-0.2); Basophils % (auto) 0.2 % (0.0-2.0); Eosinophils # (auto) 0 10 ^3/uL (0-0.8); Hematocrit 37.7 % (36.0-46.0); Hemoglobin 12.9 g/dL (12.2-16.2); Lymphocytes # (auto) 0.5 10 ^3/uL (0.4-5.4); Lymphocytes % (auto) 6.8 % (10.0-50.0); Mean Corpuscular Hemoglobin 28.6 pg (28.0-32.0); Mean Corpuscular Hgb Conc. 34.1 g/dL (32.0-36.0); Mean Corpuscular Volume 83.9 fL (80.0-100.0); Monocytes # (auto) 0.2 10 ^3/uL (0-1.3); Monocytes % (auto) 2.3 % (0.0-12.0); Neutrophils # (auto) 6.5 10 ^3/uL (1.6-8.6); Neutrophils % (auto) 90.7 % (37.0-80.0); Nucleated Red Blood Cells % 0.3 %; Red Cell Distribution Width 13.9 % (11.8-14.3); White Blood Cell 7.2 10^3/uL (4.4-10.8)
[2021-06-24 14:39] LABS: Potassium 3.6 mmol/L (3.5-5.1)
[2021-06-24 14:48] LABS: Albumin 4.2 g/dL (3.4-5.0); BUN/Creatinine Ratio 16.9; Bilirubin, Total 0.6 mg/dL (0.2-1.0); Total Protein 8.3 g/dL (6.4-8.2)
[2021-06-24] MEDS ORDERED: DIPHENOXYLATE W/ATROPINE 2.5 MG TAB PO ONE (15:15)
[2021-06-24] MEDS ORDERED: SODIUM CHLORIDE 0.9% 1,000 ML IV ONE ×3 (15:15→19:30)
[2021-06-24] MEDS ORDERED: ONDANSETRON HCL 4 MG/2 ML VIAL IV ONE (15:15)
[2021-06-24] MEDS ORDERED: METR500T PO (16:25)
[2021-06-24] MEDS ORDERED: IOHEXOL 350 MG/ML 100ML IJ ONE (17:14)
[2021-06-24 21:05] VITALS: BP 100/81
== END 2021-06-24 21:11 | disposition home or self-care (01) ==
LOC: ER 12:36
DX: K52.9 Noninfective gastroenteritis and colitis, unspecified (principal); R79.1 Abnormal coagulation profile; E03.9 Hypothyroidism, unspecified; Z90.89 Acquired absence of other organs; Z79.899 Other long term (current) drug therapy
CPT/HCPCS: 36415; 71045; 71275; 80053; 81001; 83880; 84443; 85025; 85379; 96361; 96374; 99285; J2405; Q9967

== ENCOUNTER 2021-07-17 11:42 | Emergency (ER) | payer MEDICAID ==
[~2021-07-17] VITALS: Ht 154.9 cm; Wt 51.7 kg
[~2021-07-17 11:42] MED LIST changes: -HYDROcodone-ACET 5/325MG TAB PO ONE; +METR500T PO
[2021-07-17 12:31] LABS: Basophils # (auto) 0.1 10 ^3/uL (0-0.2); Basophils % (auto) 0.9 % (0.0-2.0); Eosinophils # (auto) 0 10 ^3/uL (0-0.8); Eosinophils % (auto) 0.9 % (0.0-7.0); Hematocrit 38.4 % (36.0-46.0); Lymphocytes # (auto) 1.9 10 ^3/uL (0.4-5.4); Lymphocytes % (auto) 34.8 % (10.0-50.0); Mean Corpuscular Hemoglobin 28.6 pg (28.0-32.0); Mean Corpuscular Hgb Conc. 33.9 g/dL (32.0-36.0); Mean Corpuscular Volume 84.2 fL (80.0-100.0); Monocytes # (auto) 0.3 10 ^3/uL (0-1.3); Neutrophils # (auto) 3.2 10 ^3/uL (1.6-8.6); Neutrophils % (auto) 58.4 % (37.0-80.0); Nucleated Red Blood Cells % 0.2 %; Red Blood Cells 4.56 10^6/uL (4.0-5.20); Red Cell Distribution Width 14.1 % (11.8-14.3); White Blood Cell 5.5 10^3/uL (4.4-10.8)
[2021-07-17 12:44] LABS: Albumin 4.1 g/dL (3.4-5.0); Calcium 8.2 mg/dL (8.5-10.1); Potassium 3.9 mmol/L (3.5-5.1)
[2021-07-17 12:48] LABS: BUN/Creatinine Ratio 12.5; Bilirubin, Total 0.4 mg/dL (0.2-1.0); Total Protein 8.5 g/dL (6.4-8.2)
[2021-07-17 18:27] VITALS: BP 118/69
[2021-07-17] MEDS ORDERED: PERCOT PO (23:25)
== END 2021-07-18 00:21 | disposition left against medical advice (07) ==
LOC: ER 11:42
DX: M79.661 Pain in right lower leg (principal)
CPT/HCPCS: 36415; 80053; 85025; 93971

== ENCOUNTER 2021-10-28 18:34 | Emergency (ER) | payer MEDICAID ==
[~2021-10-28] VITALS: Ht 154.9 cm; Wt 52.0 kg
[~2021-10-28 18:34] MED LIST changes: +PERCOT PO
[2021-10-28] MEDS ORDERED: CALCIUM GLUC 1,000mg/50ml-NS 50 ML IV ONE (19:18)
[2021-10-28 19:35] LABS: Basophils # (auto) 0 10 ^3/uL (0-0.2); Basophils % (auto) 0.5 % (0.0-2.0); Eosinophils # (auto) 0 10 ^3/uL (0-0.8); Hemoglobin 11.5 g/dL (12.2-16.2); Lymphocytes # (auto) 0.6 10 ^3/uL (0.4-5.4); Monocytes # (auto) 0.9 10 ^3/uL (0-1.3); Neutrophils # (auto) 5.7 10 ^3/uL (1.6-8.6); Nucleated Red Blood Cells % 0.1 %
[2021-10-28 19:37] LABS: Hematocrit 35.1 % (36.0-46.0); Lymphocytes % (auto) 8.2 % (10.0-50.0); Mean Corpuscular Hemoglobin 26.9 pg (28.0-32.0); Mean Corpuscular Hgb Conc. 32.8 g/dL (32.0-36.0); Mean Corpuscular Volume 82.2 fL (80.0-100.0); Monocytes % (auto) 12.2 % (0.0-12.0); Neutrophils % (auto) 79.1 % (37.0-80.0); Red Blood Cells 4.27 10^6/uL (4.0-5.20); Red Cell Distribution Width 13.8 % (11.8-14.3); White Blood Cell 7.2 10^3/uL (4.4-10.8)
[2021-10-28 19:52] LABS: Albumin 4.1 g/dL (3.4-5.0); Calcium 6.5 mg/dL (8.5-10.1); Potassium 3.7 mmol/L (3.5-5.1)
[2021-10-28 19:55] LABS: Bilirubin, Total 0.4 mg/dL (0.2-1.0); Total Protein 8.4 g/dL (6.4-8.2)
[2021-10-28] MEDS ORDERED: ONDANSETRON HCL 4 MG/2 ML VIAL IV ONE (21:30)
[2021-10-28] MEDS ORDERED: HYDROmorphone HCL 2 MG/ML VL/or syr IV ONE (21:30)
[2021-10-29] MEDS: CALCIUM GLUC 1,000mg/50ml-NS 50 ML IV SCH ×2 (01:03→01:27)
[2021-10-29] MEDS ORDERED: CALCIUM GLUC 1,000mg/50ml-NS 50 ML IV ONE (04:00)
[2021-10-29] MEDS ORDERED: SODIUM CHLORIDE 0.9% 500 ML IV ONE (04:00)
[2021-10-29] MEDS ORDERED: ONDANSETRON HCL 4 MG/2 ML VIAL ONE (04:42)
[2021-10-29 05:30] VITALS: BP 121/69
[2021-10-29] MEDS ORDERED: ONDANSETRON HCL 4 MG/2 ML VIAL IV ONE (05:30)
== END 2021-10-29 06:05 | disposition home or self-care (01) ==
LOC: ER 18:34
DX: E83.51 Hypocalcemia (principal); R11.2 Nausea with vomiting, unspecified; E03.9 Hypothyroidism, unspecified; Z90.89 Acquired absence of other organs; Z79.899 Other long term (current) drug therapy; Z20.822 Contact with and (suspected) exposure to COVID-19
CPT/HCPCS: 36415; 71045; 80053; 82310; 84443; 84484; 85025; 87426; 93005; 96365; 96366; 96375; 96376; 99285; J0610; J1170; J2405

== ENCOUNTER 2022-03-15 13:28 | Emergency (ER) | payer MEDICAID ==
[~2022-03-15] VITALS: Ht 167.6 cm; Wt 65.0 kg
[2022-03-15 14:29] LABS: Basophils # (auto) 0.1 10 ^3/uL (0-0.2); Basophils % (auto) 1.1 % (0.0-2.0); Eosinophils # (auto) 0.2 10 ^3/uL (0-0.8); Eosinophils % (auto) 3.3 % (0.0-7.0); Hemoglobin 11.9 g/dL (12.2-16.2); Lymphocytes # (auto) 1.1 10 ^3/uL (0.4-5.4); Lymphocytes % (auto) 21.5 % (10.0-50.0); Mean Corpuscular Hemoglobin 26.8 pg (28.0-32.0); Mean Corpuscular Volume 81.2 fL (80.0-100.0); Monocytes # (auto) 0.4 10 ^3/uL (0-1.3); Monocytes % (auto) 7.1 % (0.0-12.0); Neutrophils # (auto) 3.5 10 ^3/uL (1.6-8.6); Nucleated Red Blood Cells % 0.1 %; Red Blood Cells 4.43 10^6/uL (4.0-5.20); Red Cell Distribution Width 13.8 % (11.8-14.3); White Blood Cell 5.2 10^3/uL (4.4-10.8)
[2022-03-15 15:01] LABS: Potassium 3.4 mmol/L (3.5-5.1)
[2022-03-15 15:07] LABS: Albumin 3.7 g/dL (3.4-5.0); BUN/Creatinine Ratio 11.8; Bilirubin, Total 0.6 mg/dL (0.2-1.0); Calcium 6.2 mg/dL (8.5-10.1); Magnesium 1.6 mg/dL (1.6-2.6); Total Protein 7.2 g/dL (6.4-8.2)
[2022-03-15] MEDS ORDERED: CALCIUM GLUC 1,000mg/50ml-NS 50 ML IV ONE (17:45)
[2022-03-15] MEDS ORDERED: HYDROmorphone HCL 2 MG/ML VL/or syr IV ONE (18:00)
[2022-03-15 19:30] VITALS: BP 124/69
[2022-03-15] MEDS ORDERED: ACETAMINOPHEN 325 MG TAB PO PRN (20:45)
[2022-03-15] MEDS ORDERED: SODIUM CHLORIDE 0.9% 1,000 ML IV SCH (20:45)
[2022-03-15] MEDS ORDERED: ASCORBIC ACID 500 MG TAB PO SCH (22:00)
[2022-03-15] MEDS ORDERED: CALCIUM CARB 500 MG CHEW TAB PO SCH (22:00)
[2022-03-16] MEDS ORDERED: LEVOTHYROXINE SODIUM 112 MCG TAB PO SCH (07:00)
[2022-03-16] MEDS ORDERED: ZINC SULFATE 220mg CAP or TAB PO SCH (10:00)
[2022-03-16] MEDS ORDERED: MAGNESIUM OXIDE 800 MG PO SCH (10:00)
[2022-03-16] MEDS ORDERED: MULTIPLE VITAMIN TAB PO SCH (10:00)
[2022-03-16] MEDS ORDERED: ENOXAPARIN SOD 40 MG/0.4 ML SYRINGE SC SCH (10:00)
== END 2022-03-15 20:50 | disposition left against medical advice (07) ==
LOC: EDBD 13:28 → ER 13:40 → OVERFLOW 20:42 → UNDOADMIN 20:42 → ER 20:50
DX: E83.51 Hypocalcemia (principal); Z79.899 Other long term (current) drug therapy; Z90.89 Acquired absence of other organs
CPT/HCPCS: 36415; 80053; 83735; 84100; 84443; 85025; 93005; 96365; 96375; 99285; J0610; J1170

== ENCOUNTER 2022-05-08 20:30 | Inpatient (IN) | payer MEDICAID ==
[~2022-05-08] VITALS: Ht 175.3 cm; Wt 53.3 kg
[2022-05-08 21:55] LABS: Basophils # (auto) 0.1 10 ^3/uL (0-0.2); Eosinophils # (auto) 0 10 ^3/uL (0-0.8); Eosinophils % (auto) 0.1 % (0.0-7.0); Monocytes # (auto) 1.2 10 ^3/uL (0-1.3)
[2022-05-08 21:57] LABS: Basophils % (auto) 0.3 % (0.0-2.0); Hematocrit 22.3 % (36.0-46.0); Hemoglobin 7.4 g/dL (12.2-16.2); Lymphocytes # (auto) 1.9 10 ^3/uL (0.4-5.4); Mean Corpuscular Hemoglobin 26.9 pg (28.0-32.0); Mean Corpuscular Hgb Conc. 33.2 g/dL (32.0-36.0); Monocytes % (auto) 5.5 % (0.0-12.0); Neutrophils # (auto) 17.7 10 ^3/uL (1.6-8.6); Neutrophils % (auto) 85.1 % (37.0-80.0); Red Blood Cells 2.76 10^6/uL (4.0-5.20); White Blood Cell 20.8 10^3/uL (4.4-10.8)
[2022-05-08 22:15] LABS: Albumin 3.9 g/dL (3.4-5.0); Calcium 6.4 mg/dL (8.5-10.1); Magnesium 1.5 mg/dL (1.6-2.6); Potassium 3.4 mmol/L (3.5-5.1)
[2022-05-08 22:17] LABS: BUN/Creatinine Ratio 15.2
[2022-05-08 22:20] LABS: Bilirubin, Total 0.5 mg/dL (0.2-1.0); Total Protein 7.4 g/dL (6.4-8.2)
[2022-05-08] MEDS ORDERED: ONDANSETRON HCL 4 MG/2 ML VIAL IV ONE (23:00)
[2022-05-09] MEDS ORDERED: CALCIUM GLUC 1,000mg/50ml-NS 50 ML IV ONE ×2 (00:15→06:00)
[2022-05-09] MEDS ORDERED: MORPHINE SULFATE 4 MG/ML SYR/VIAL IV ONE (00:15)
[2022-05-09 00:59] LABS: INR 1.02 (0.9-1.15); Partial Thromboplastin Time 28.8 sec (24.6-33.4)
[2022-05-09] MEDS ORDERED: cefTRIAXone 1GM/50ML D5W 50 ML IV ONE (07:30)
[2022-05-09] MEDS ORDERED: NITROGLYCERIN 0.4 MG SL TAB SL PRN (07:30)
[2022-05-09] MEDS ORDERED: POTASSIUM CHL 20 Meq TABLET PO ONE (07:30)
[2022-05-09] MEDS ORDERED: DOCUSATE SOD 100 MG CAP PO PRN (07:30)
[2022-05-09] MEDS ORDERED: MORPHINE SULFATE INJ 2 MG/ml SYRG IV PRN (07:30)
[2022-05-09] MEDS ORDERED: TEMAZEPAM 15 MG CAP PO PRN (07:30)
[2022-05-09] MEDS ORDERED: ACETAMINOPHEN 325 MG TAB PO PRN (07:30)
[2022-05-09] MEDS ORDERED: ONDANSETRON HCL 4 MG/2 ML VIAL IV PRN (07:30)
[2022-05-09 08:10] LABS: Basophils # (auto) 0.1 10 ^3/uL (0-0.2); Basophils % (auto) 0.5 % (0.0-2.0); Eosinophils # (auto) 0 10 ^3/uL (0-0.8); Eosinophils % (auto) 0.1 % (0.0-7.0); Hematocrit 31.4 % (36.0-46.0); Hemoglobin 10.4 g/dL (12.2-16.2); Lymphocytes # (auto) 2.1 10 ^3/uL (0.4-5.4); Lymphocytes % (auto) 15.1 % (10.0-50.0); Mean Corpuscular Hemoglobin 27.1 pg (28.0-32.0); Mean Corpuscular Volume 81.9 fL (80.0-100.0); Monocytes # (auto) 0.7 10 ^3/uL (0-1.3); Monocytes % (auto) 5.2 % (0.0-12.0); Neutrophils % (auto) 79.1 % (37.0-80.0); Nucleated Red Blood Cells % 0.2 %; Red Blood Cells 3.84 10^6/uL (4.0-5.20); Red Cell Distribution Width 15.2 % (11.8-14.3); White Blood Cell 13.9 10^3/uL (4.4-10.8)
[2022-05-09 08:16] LABS: Albumin 3.6 g/dL (3.4-5.0); Calcium 7.2 mg/dL (8.5-10.1); Potassium 3.7 mmol/L (3.5-5.1)
[2022-05-09 08:19] LABS: BUN/Creatinine Ratio 9.9; Bilirubin, Total 0.8 mg/dL (0.2-1.0); Total Protein 6.7 g/dL (6.4-8.2)
[2022-05-09] MEDS: D5W/SOD CHL 0.45% 1,000 ML IV SCH ×2 (09:46→20:37)
[2022-05-09] MEDS: MAGNESIUM SULFATE 1GM/100ML 100 ML IV SCH ×2 (09:56→11:04)
[2022-05-09] MEDS: FAMOTIDINE (10MG/ML) 2ML VL IV SCH ×2 (11:00→22:06)
[2022-05-09] MEDS: MORPHINE SULFATE INJ 2 MG/ml SYRG IV PRN ×2 (14:26→21:05)
[2022-05-09] MEDS: metroNIDAZOLE 500MG/100ML 100 ML IV SCH ×2 (14:27→22:06)
[2022-05-09 15:30] VITALS: BP 95/61
[2022-05-09] MEDS ORDERED: MAGN400T40 PO (15:51)
[2022-05-09] MEDS ORDERED: CALC0.25 PO (15:51)
[2022-05-09] MEDS ORDERED: OXYC-112 PO (15:51)
[2022-05-09] MEDS ORDERED: LEVO200T7 PO (15:51)
[2022-05-09 17:00] VITALS: BP 109/74
[2022-05-09] MEDS: HYDROcodone-ACET 5/325MG TAB PO PRN ×3 (17:50→22:07)
[2022-05-09 20:00] VITALS: BP 106/53
[2022-05-09 22:00] VITALS: BP 96/53
[2022-05-10] VITALS (7 sets, daily range): BP systolic 85–109; BP diastolic 53–72
[2022-05-10] MEDS: metroNIDAZOLE 500MG/100ML 100 ML IV SCH ×4 (05:26→23:14)
[2022-05-10] MEDS: MORPHINE SULFATE INJ 2 MG/ml SYRG IV PRN ×2 (05:35→21:16)
[2022-05-10 06:06] LABS: Basophils # (auto) 0.1 10 ^3/uL (0-0.2); Basophils % (auto) 0.8 % (0.0-2.0); Eosinophils # (auto) 0.1 10 ^3/uL (0-0.8); Eosinophils % (auto) 1.6 % (0.0-7.0); Hematocrit 31.6 % (36.0-46.0); Hemoglobin 10.4 g/dL (12.2-16.2); Lymphocytes # (auto) 1.7 10 ^3/uL (0.4-5.4); Lymphocytes % (auto) 20.1 % (10.0-50.0); Mean Corpuscular Hemoglobin 27.3 pg (28.0-32.0); Mean Corpuscular Volume 82.6 fL (80.0-100.0); Monocytes # (auto) 0.6 10 ^3/uL (0-1.3); Monocytes % (auto) 6.5 % (0.0-12.0); Neutrophils # (auto) 6.1 10 ^3/uL (1.6-8.6); Red Blood Cells 3.82 10^6/uL (4.0-5.20); Red Cell Distribution Width 15.4 % (11.8-14.3); White Blood Cell 8.5 10^3/uL (4.4-10.8)
[2022-05-10 06:21] LABS: Albumin 3.5 g/dL (3.4-5.0); Potassium 3.8 mmol/L (3.5-5.1)
[2022-05-10 06:25] LABS: BUN/Creatinine Ratio 11.4; Bilirubin, Total 0.4 mg/dL (0.2-1.0); Total Protein 6.6 g/dL (6.4-8.2)
[2022-05-10 06:28] LABS: Calcium 5.9 mg/dL (8.5-10.1)
[2022-05-10] MEDS: cefTRIAXone 1GM/50ML D5W 50 ML IV SCH (10:20)
[2022-05-10] MEDS: FAMOTIDINE (10MG/ML) 2ML VL IV SCH ×2 (10:20→21:12)
[2022-05-10] MEDS: D5W/SOD CHL 0.45% 1,000 ML IV SCH ×2 (10:20→23:30)
[2022-05-10] MEDS ORDERED: CALCIUM GLUC 1,000mg/50ml-NS 50 ML IV ONE (11:15)
[2022-05-10] MEDS ORDERED: CALCIUM CARB 500 MG CHEW TAB PO SCH (12:00)
[2022-05-10] MEDS: MAGNESIUM SULFATE 1GM/100ML 100 ML IV SCH ×2 (12:56→14:33)
[2022-05-10] MEDS: CALCIUM CARB 500 MG CHEW TAB PO SCH ×3 (13:33→22:16)
[2022-05-10] MEDS: CALCITRIOL 0.25 MCG CAP PO SCH ×2 (14:35→22:15)
[2022-05-10] MEDS: MAGNESIUM OXIDE 400 MG TAB PO SCH (22:15)
[2022-05-11 05:00] VITALS: BP 93/59
[2022-05-11] MEDS: CALCITRIOL 0.25 MCG CAP PO SCH ×2 (05:19→14:49)
[2022-05-11] MEDS: CALCIUM CARB 500 MG CHEW TAB PO SCH ×6 (05:19→18:17)
[2022-05-11 06:44] LABS: BUN/Creatinine Ratio 8.8; Magnesium 1.8 mg/dL (1.6-2.6); Potassium 3.5 mmol/L (3.5-5.1)
[2022-05-11] MEDS ORDERED: LEVOTHYROXINE SODIUM 100 MCG TAB PO SCH (07:00)
[2022-05-11 07:19] LABS: Calcium 5.8 mg/dL (8.5-10.1)
[2022-05-11 09:00] VITALS: BP 96/67
[2022-05-11] MEDS ORDERED: CALCIUM GLUC 1,000mg/50ml-NS 50 ML IV ONE ×2 (09:30)
[2022-05-11] MEDS ORDERED: CALCIUM CARB 500 MG CHEW TAB PO PRN ×2 (09:45→12:00)
[2022-05-11] MEDS: cefTRIAXone 1GM/50ML D5W 50 ML IV SCH (09:47)
[2022-05-11] MEDS: FAMOTIDINE (10MG/ML) 2ML VL IV SCH (09:47)
[2022-05-11] MEDS: MAGNESIUM OXIDE 400 MG TAB PO SCH (09:48)
[2022-05-11] MEDS: D5W/SOD CHL 0.45% 1,000 ML IV SCH ×2 (10:32→14:49)
[2022-05-11 13:00] VITALS: BP 93/68
[2022-05-11] MEDS: metroNIDAZOLE 500MG/100ML 100 ML IV SCH (14:49)
[2022-05-11 15:52] LABS: Albumin 3.3 g/dL (3.4-5.0); BUN/Creatinine Ratio 10.3; Calcium 6.8 mg/dL (8.5-10.1); Potassium 3.2 mmol/L (3.5-5.1)
[2022-05-11 15:55] LABS: Bilirubin, Total 0.4 mg/dL (0.2-1.0); Total Protein 7.3 g/dL (6.4-8.2)
[2022-05-11] MEDS ORDERED: CALCIUM GLUC 1,000mg/50ml-NS 50 ML IV PRN ×2 (16:00→16:30)
[2022-05-11] MEDS ORDERED: CALCITRIOL 1 MCG/ML AMPULE IV ONE (16:00)
[2022-05-11 17:00] VITALS: BP 94/64
[2022-05-11] MEDS ORDERED: CHOLECALCIFEROL (VITD3) 1,000UNIT=25mCg TAB PO SCH (18:00)
[2022-05-11] MEDS ORDERED: CALCITRIOL 0.25 MCG CAP PO SCH (22:00)
== END 2022-05-11 18:47 | disposition left against medical advice (07) | DRG 425 ==
LOC: EDBD 20:30 → ER 20:30 → OVERFLOW 05-09 07:38 → EAST 05-09 15:14 → WEST WING 05-09 16:20 → TELE-WESTW 05-11 12:37
PROVIDERS: ADMIT Nurse Practitioner Family; ATTEND Hospitalist
DX: E83.51 Hypocalcemia (principal); D64.9 Anemia, unspecified; E03.9 Hypothyroidism, unspecified; D72.829 Elevated white blood cell count, unspecified; E11.9 Type 2 diabetes mellitus without complications; E83.42 Hypomagnesemia; E83.52 Hypercalcemia; F41.9 Anxiety disorder, unspecified; N85.2 Hypertrophy of uterus; K76.9 Liver disease, unspecified; Z82.3 Family history of stroke; Z79.899 Other long term (current) drug therapy; Z79.891 Long term (current) use of opiate analgesic; Z82.5 Family history of asthma and other chronic lower respiratory diseases; Z83.49 Family history of other endocrine, nutritional and metabolic diseases; Z80.3 Family history of malignant neoplasm of breast; Z83.3 Family history of diabetes mellitus; Z82.49 Family history of ischemic heart disease and other diseases of the circulatory system
CPT/HCPCS: 36415; 74176; 76856; 80048; 80053; 83735; 83880; 83970; 84439; 84443; 84484; 84702; 85025; 85610; 85730; 87426; 93005; 96365; 96367; 96375; G0378; J0696; J2405; J3490

== ENCOUNTER 2024-01-13 03:21 | Inpatient (IN) | payer MEDICAID ==
[~2024-01-13] VITALS: Ht 152.4 cm; Wt 53.1 kg
[~2024-01-13 03:21] MED LIST changes: +CALC0.25 PO; -LEVO112T4 PO; +LEVO200T7 PO; -METR500T PO; +OXYC-112 PO; -PERCOT PO
[2024-01-13 04:25] LABS: Basophils # (auto) 0 10 ^3/uL (0-0.2); Basophils % (auto) 0.2 % (0.0-2.0); Eosinophils # (auto) 0 10 ^3/uL (0-0.8); Eosinophils % (auto) 0.2 % (0.0-7.0); Hematocrit 35.6 % (36.0-46.0); Hemoglobin 12.1 g/dL (12.2-16.2); Lymphocytes % (auto) 7.6 % (10.0-50.0); Mean Corpuscular Hemoglobin 29.5 pg (28.0-32.0); Mean Corpuscular Hgb Conc. 33.9 g/dL (32.0-36.0); Mean Corpuscular Volume 86.9 fL (80.0-100.0); Monocytes # (auto) 0.6 10 ^3/uL (0-1.3); Monocytes % (auto) 4.7 % (0.0-12.0); Neutrophils % (auto) 87.3 % (37.0-80.0); Platelet Count (auto) 237 10^3/uL (140-450); Red Blood Cells 4.09 10^6/uL (4.0-5.20); Red Cell Distribution Width 14.1 % (11.8-14.3); White Blood Cell 12.6 10^3/uL (4.4-10.8)
[2024-01-13 04:36] LABS: INR 1.03 (0.9-1.15); Partial Thromboplastin Time 30.1 SEC (24.5-34.5); Prothrombin Time 10.9 sec (9.3-11.8)
[2024-01-13 04:46] LABS: Albumin 4.8 g/dL (3.2-4.8); Alkaline Phosphatase 68 U/L (46-116); Anion Gap 8 (5-15); Aspartate Aminotransferase 15 U/L (13-40); BUN/Creatinine Ratio 7.8 (10.0-20.0); Blood Urea Nitrogen 6 mg/dL (9-23); Calcium 7.4 mg/dL (8.7-10.4); Carbon Dioxide 27 mmol/L (20-31); Chloride 102 mmol/L (98-107); Glucose 118 mg/dL (74-106); Magnesium 1.3 mg/dL (1.6-2.6); Potassium 3.3 mmol/L (3.5-5.1); Sodium 137 mmol/L (136-145)
[2024-01-13 04:47] LABS: Bilirubin, Total 0.6 mg/dL (0.2-1.0); Total Protein 7.9 g/dL (5.7-8.2)
[2024-01-13 04:57] LABS: Alanine Aminotransferase < 9 U/L (7-40)
[2024-01-13 06:00] VITALS: PULSE 99; RESP 22; O2SAT 100
[2024-01-13] MEDS: POTASSIUM EFFERVESENT TAB 25 MEQ PO ONE ×2 (06:22→13:04)
[2024-01-13] MEDS: MAGNESIUM SULFATE 1GM/100ML 100 ML IV SCH (06:22)
[2024-01-13] MEDS: ASPirin 81 mg TAB PO ONE (06:22)
[2024-01-13] MEDS: ONDANSETRON HCL 4 MG/2 ML VIAL IV ONE ×2 (06:30→10:58)
[2024-01-13] MEDS ORDERED: MORPHINE SULFATE INJ 2 MG/ml SYRG IV ONE (11:00)
[2024-01-13] MEDS: MORPHINE SULFATE 4 MG/ML SYR/VIAL IV ONE (11:06)
[2024-01-13] MEDS ORDERED: ASPirin 81 mg TAB PO ONE (13:00)
[2024-01-13] MEDS: ACETAMINOPHEN 325 MG TAB PO ONE (13:02)
[2024-01-13] MEDS: CALCIUM GLUC 1,000mg/50ml-NS 50 ML IV SCH ×2 (13:12→13:30)
[2024-01-13] MEDS ORDERED: NITROGLYCERIN 0.4 MG SL TAB SL PRN (15:00)
[2024-01-13] MEDS ORDERED: DOCUSATE SOD 100 MG CAP PO PRN (15:00)
[2024-01-13] MEDS: cefTRIAXone 1GM/50ML D5W 50 ML IV ONE (16:33)
[2024-01-13] MEDS: MORPHINE SULFATE INJ 2 MG/ml SYRG IV PRN (16:40)
[2024-01-13 16:53] LABS: Calcium 8.2 mg/dL (8.7-10.4)
[2024-01-13 16:59] LABS: Blood Alcohol 3.4 mg/dL (<10)
[2024-01-13 17:00] LABS: Magnesium 2.2 mg/dL (1.6-2.6)
[2024-01-13 17:01] LABS: Phosphorus 4.9 mg/dL (2.4-5.1)
[2024-01-13] MEDS: diazePAM 5 MG TAB PO ONE (17:01)
[2024-01-13] MEDS: SODIUM CHLORIDE 0.9% 1,000 ML IV SCH (17:01)
[2024-01-13 20:25] VITALS: PULSE 99; RESP 16; O2SAT 100
[2024-01-13] MEDS: ONDANSETRON HCL 4 MG/2 ML VIAL IV PRN (21:05)
[2024-01-13] MEDS: ENOXAPARIN SOD 100 MG/1 ML SYRINGE SC SCH (22:58)
[2024-01-13] MEDS: CALCITRIOL 0.25 MCG CAP PO SCH (22:58)
[2024-01-14] VITALS (10 sets, daily range): BP systolic 89–103; BP diastolic 51–64; PULSE 76–93; RESP 13–20; TEMP 98.2–98.8; O2SAT 98–100
[2024-01-14 06:09] LABS: Albumin 4.3 g/dL (3.2-4.8); Alkaline Phosphatase 65 U/L (46-116); Anion Gap 8 (5-15); Aspartate Aminotransferase 11 U/L (13-40); Bilirubin, Total 0.6 mg/dL (0.2-1.0); Calcium 7.1 mg/dL (8.7-10.4); Carbon Dioxide 25 mmol/L (20-31); Chloride 105 mmol/L (98-107); Glucose 94 mg/dL (74-106); Potassium 4.2 mmol/L (3.5-5.1); Sodium 138 mmol/L (136-145)
[2024-01-14 06:13] LABS: Basophils # (auto) 0 10 ^3/uL (0-0.2); Basophils % (auto) 0.3 % (0.0-2.0); Eosinophils # (auto) 0 10 ^3/uL (0-0.8); Eosinophils % (auto) 0.3 % (0.0-7.0); Hematocrit 32.7 % (36.0-46.0); Hemoglobin 11.1 g/dL (12.2-16.2); Lymphocytes # (auto) 1.6 10 ^3/uL (0.4-5.4); Lymphocytes % (auto) 13.1 % (10.0-50.0); Mean Corpuscular Hemoglobin 29.3 pg (28.0-32.0); Mean Corpuscular Hgb Conc. 33.9 g/dL (32.0-36.0); Mean Corpuscular Volume 86.6 fL (80.0-100.0); Monocytes # (auto) 0.6 10 ^3/uL (0-1.3); Monocytes % (auto) 5.1 % (0.0-12.0); Neutrophils # (auto) 10.2 10 ^3/uL (1.6-8.6); Neutrophils % (auto) 81.2 % (37.0-80.0); Platelet Count (auto) 204 10^3/uL (140-450); Red Blood Cells 3.78 10^6/uL (4.0-5.20); White Blood Cell 12.6 10^3/uL (4.4-10.8)
[2024-01-14 06:25] LABS: Alanine Aminotransferase < 9 U/L (7-40); Blood Urea Nitrogen < 5 mg/dL (9-23)
[2024-01-14] MEDS: CALCIUM CARB 500 MG CHEW TAB PO SCH (10:43)
[2024-01-14] MEDS: cefTRIAXone 1GM/50ML D5W 50 ML IV SCH (10:43)
[2024-01-14] MEDS ORDERED: CALC500C3 PO (10:54)
[2024-01-14 19:38] LABS: Urine Bacteria None Seen /hpf (None Seen)
[2024-01-14 19:50] LABS: Urine Blood TRACE /uL (Negative); Urine Clarity Turbid (Clear); Urine Color Light-Yellow (Yellow); Urine Mucus FEW (None Seen); Urine Protein, UAD Negative (Negative); Urine Urobilinogen Normal (Negative); Urine WBC 9 /hpf (0 - 5)
[2024-01-15] VITALS (7 sets, daily range): BP systolic 97–105; BP diastolic 62–70; PULSE 65–82; RESP 19–20; TEMP 97.9–98.5; O2SAT 96–99
[2024-01-15] MEDS: diazePAM 5 MG TAB PO PRN (09:55)
[2024-01-15] MEDS ORDERED: CYCL-837 PO (10:06)
== END 2024-01-15 16:30 | disposition home or self-care (01) | DRG 203 ==
LOC: ER 03:21 → TELE 15:07 → TELE-CENTR 01-14 08:44
PROVIDERS: ADMIT Nurse Practitioner Family; ATTEND Student in an Organized Health Care Education/Training Program
DX: M94.0 Chondrocostal junction syndrome [Tietze] (principal); E83.51 Hypocalcemia; G90.522 Complex regional pain syndrome I of left lower limb; E83.42 Hypomagnesemia; E89.0 Postprocedural hypothyroidism; F10.10 Alcohol abuse, uncomplicated; E87.6 Hypokalemia; K76.9 Liver disease, unspecified; M62.838 Other muscle spasm; K52.9 Noninfective gastroenteritis and colitis, unspecified; Z80.3 Family history of malignant neoplasm of breast; Z83.3 Family history of diabetes mellitus; Z82.5 Family history of asthma and other chronic lower respiratory diseases; Z82.49 Family history of ischemic heart disease and other diseases of the circulatory system; Z82.3 Family history of stroke; Z79.899 Other long term (current) drug therapy
CPT/HCPCS: 36415; 71045; 80053; 80320; 81001; 82310; 83735; 83880; 84100; 84484; 85025; 85379; 85610; 85730; 93005; 93306; 96365; 96375; G0378; J2405

== ENCOUNTER 2024-11-10 22:00 | Inpatient (IN) | payer MEDICAID ==
[~2024-11-10] VITALS: Ht 154.9 cm; Wt 65.5 kg
[~2024-11-10 22:00] MED LIST changes: +CYCL-837 PO
--- NOTE | 2024-11-10 22:27 | ECG ---
[facility] Test Date: 2024-11-10 Test Time: 22:09:57 Pat Name: DAYAN CARVALHO Department: ED Room: 0245T Gender: F Quality Assurance Project Manager: ROSS : 1990 Requested By: JAVAN BARRIENTOS Order Number: [id number] Reading MD: Jose Roberto Jay Measurements Intervals [place] Rate: 111 P: 62 WV: 117 QRS: 73 QRSD: 133 T: 42 QT: 360 QTc: 489 Interpretive Statements Sinus tachycardia Nonspecific intraventricular conduction delay Minimal ST depression, inferior leads Electronically Signed On 11-13-2024 18:18:15 PDT by Jose Roberto Jay Please click the below link to view image of tracing.
[2024-11-10 22:30] VITALS: O2SAT 98
--- NOTE | 2024-11-10 22:53 | ED.PDOC ---
History of Present Illness HPI Comments 34-year-old female with a history of thyroidectomy and accidental partial parathyroidectomy brought in by private car for evaluation of tetany. History is unobtainable from the patient due to severity, so history is obtained from the patient's who is at bedside. states the patient has a history of hypocalcemia due to her previous history and has similar symptoms when her potassium gets low. Currently her symptoms include bilateral upper extremity tetany, difficulty speaking, chest pain and shortness of breath. Has been states these symptoms started this evening while having dinner. Patient's also states that the patient had a calcium of 5.6 at a routine doctor's visit 1 month ago, however there was no intervention. Chief Complaint: Chest Pain Time Seen by MD: 22:53 Primary Care Provider: DEVANTE Lerma Notes: Nurses Notes Allergies: Coded Allergies: NO KNOWN ALLERGIES (Unverified , 04/12/11) Home Meds Active Scripts Cyclobenzaprine Hcl (Cyclobenzaprine Hcl) 5 Mg Tab, 1 TAB PO TID PRN for 5 Days, #15 TAB Prov:ARUN PAGAN MD 01/15/24 Reported Medications Calcium Carbonate (Tums) 500 Mg Chw, 5000 MG PO 5XD, TAB.CHEW 01/14/24 Magnesium Oxide (MAGNESIUM OXIDE) 400 Mg Tab, 200 MG PO DAILY, #30 TAB 5 Refills 05/09/22 Oxycodone W/ Acetaminophen (Endocet) 1 Tab Tab, 10-325 MG PO DAILY 05/09/22 Calcitriol (Calcitriol) 0.25 Mcg Cap, 1 CAP PO TID 05/09/22 Levothyroxine Sodium (Levothyroxine Sodium) 200 Mcg Tab, 1 TAB PO DAILY 05/09/22 Information Source: Patient Mode of Arrival: Ambulatory Severity: Moderate Timing: Minutes Duration: Since onset Past Medical History PAST MEDICAL HISTORY: Thyroid Past Medical History (Other): Hypocalcemia Surgical History: Thyroidectomy [employer] History: No Pertinent [employer] History Family History Family History: Family hx of DM, Family hx of Cancer, Family hx of heart dandy, Family hx of HTN, Family hx of Kidney dandy, Family hx of lung dandy, Family hx of stroke Family History (Other): thyroid disease Social History Smoker: Non-Smoker Alcohol: Occasionally Drugs: Denies Drug Use Lives In: Home Constitutional: denies: chills, diaphoresis, fatigue, fever, malaise, sweats, weakness, others EENTM: reports: others (jaw locks); denies: blurred vision, double vision, ear bleeding, ear discharge, ear drainage, ear pain, ear ringing, eye pain, eye redness, hearing loss, mouth pain, mouth swelling, nasal discharge, nose bleeding, nose congestion, nose pain, photophobia, tearing, throat pain, throat swelling, voice changes Respiratory: reports: SOB at rest, shortness of breath; denies: cough, hemoptysis, orthopnea, SOB with excertion, stridor, wheezing, others Cardiovascular: reports: chest pain; denies: dizzy spells, diaphoresis, Dyspnea on exertion, edema, irregular heart beat, left arm pain, lightheadedness, palpitations, PND, syncope, others Gastrointestinal: denies: abdomen distended, abdominal pain, blood streaked bowels, constipated, diarrhea, dysphagia, difficulty swallowing, hematemesis, melena, nausea, poor appetite, poor fluid intake, rectal bleeding, rectal pain, vomiting, others Genitourinary: denies: abnormal vagina bleeding, burning, dyspareunia, dysuria, flank pain, frequency, hematuria, incontinence, pain, , vagina discharge, urgency, others Neurological: reports: tremors, others (Spasms); denies: dizziness, fainting, headache, left sided numbness, left sided weakness, numbness, paresthesia, pre- existing deficit, right sided numbness, right sided weakness, seizure, speech problems, tingling, weakness Musculoskeletal: denies: back pain, gout, joint pain, joint swelling, muscle pain, muscle stiffness, neck pain, others Integumetry: denies: bruises, change in color, change in hair/nails, dryness, laceration, lesions, lumps, rash, wounds, others Allergic/Immunocompromised: denies: Difficulty Healing, Frequent Infections, Hives, Itching, others Hematologic/Lymphatic: denies: anemia, blood clots, easy bleeding, easy bruising, swollen glands, others Endocrine: denies: excessive hunger, excessive sweating, excessive thirst, excessive urination, flushing, intolerance to cold, intolerance to heat, unexplained weight gain, unexplained weight loss, others Psychiatric: denies: anxiety, bipolar disorder, depression, hopeless, panic disorder, schizophrenia, sleepless, suicidal, others Physical Exam General Appearance: Mild Distress HEENT: Other (Pupils and face symmetric. Dry mucous membranes.) Neck: Full Range of Motion, Normal Inspection Respiratory: Lungs Clear, No Accessory Muscle Use, Normal Breath Sounds, Respiratory Distress (Mild) Cardiovascular: No Edema, No JVD, Regular Rate/Rhythm Breast Exam: Deferred Gastrointestinal: Non Tender, Soft Genitalia: Deferred Pelvic: Deferred Rectal: Deferred Extremities: Non-tender, No pedal edema, Other (Bilateral upper extremity spasm/tetany) Neurologic: Alert, Other (Mild dysarthria, no other gross focal deficit) Cerebellar Function: NOT DONE Reflexes: NOT DONE Skin: Dry, Normal Color, Warm Lymphatic: NOT DONE Was a procedure done? Was a procedure done?: No EKG EKG : Comments Sinus tach, rate 111, normal [place] interval, QRS prolonged at 133, QTC prolonged at 489, normal axis, normal QRS, minimal inferior ST-depression Differential Dx Considerations may include: hypocalcemia, other electrolyte imbalance, ACS, ND, arrhythmia, PE, among others X-Ray, Labs, Meds, VS Vital Signs Date Time Temp Pulse Resp B/P (MAP) Pulse Ox O2 Delivery O2 Flow Rate FiO2 11/11/24 02:00 67 14 107/71 (83) 98 11/11/24 01:09 98.3 64 11 123/75 (91) 98 98.3 11/11/24 00:00 64 11 123/75 (91) 98 11/10/24 22:33 98.9 86 14 129/83 (98) 98 98.9 11/10/24 22:30 98 Room Air* 0 21 11/10/24 22:09 111 11/10/24 22:04 98.1 95 25 159/113 100 98.1 Lab Test 11/11/24 01:08 11/11/24 01:07 11/10/24 23:20 11/10/24 22:36 Range/Units Urine Test Negative Negative Urine Color Straw Yellow Urine Clarity Clear Clear Urine pH 7.5 5.0-9.0 Urine Specific [place] 1.008 1.001-1.035 Urine Protein Negative Negative Urine Ketones Negative Negative Urine Blood Negative Negative /uL Urine Nitrite Negative Negative Urine Bilirubin Negative Negative Urine Urobilinogen Normal Negative mg/dL Urine Leukocyte Esterase Negative Negative /uL Urine Glucose Normal Normal mg/dL Troponin I High Sensitivity 3 L < 3 L </=34 ng/L White Blood Count 7.4 4.4-10.8 10^3/uL Red Blood Count 4.27 4.0-5.20 10^6/uL Hemoglobin 11.5 L 12.2-16.2 g/dL Hematocrit 34.6 L 36.0-46.0 % Mean Corpuscular Volume 81.1 80.0-100.0 fL Mean Corpuscular Hemoglobin 26.9 L 28.0-32.0 pg Mean Corpuscular Hemoglobin Concent 33.1 32.0-36.0 g/dL Red Cell Distribution Width 14.6 H 11.8-14.3 % Platelet Count 276 140-450 10^3/uL Mean Platelet Volume 8.7 6.9-10.8 fL Neutrophils (%) (Auto) 52.3 37.0-80.0 % Lymphocytes (%) (Auto) 39.4 10.0-50.0 % Monocytes (%) (Auto) 6.8 0.0-12.0 % Eosinophils (%) (Auto) 0.4 0.0-7.0 % Basophils (%) (Auto) 1.1 0.0-2.0 % Neutrophils # (Auto) 3.9 1.6-8.6 10 ^3/uL Lymphocytes # (Auto) 2.9 0.4-5.4 10 ^3/uL Monocytes # (Auto) 0.5 0-1.3 10 ^3/uL Eosinophils # (Auto) 0 0-0.8 10 ^3/uL Basophils # (Auto) 0.1 0-0.2 10 ^3/uL Nucleated Red Blood Cells 0.0 % Sodium Level 139 136-145 mmol/L Potassium Level 3.8 3.5-5.1 mmol/L Chloride Level 100 98-107 mmol/L Carbon Dioxide Level 25 20-31 mmol/L Anion Gap 14 5-15 Blood Urea Nitrogen 8 L 9-23 mg/dL Creatinine 0.74 0.550-1.02 mg/dL Glomerular Filtration Rate Calc 107 >90 mL/min BUN/Creatinine Ratio 10.8 10.0-20.0 Serum Glucose 127 H 74-106 mg/dL Calcium Level 5.5 *L 8.7-10.4 mg/dL Magnesium Level 1.4 L 1.6-2.6 mg/dL B-Type Natriuretic Peptide 4.83 0-100 pg/mL Thyroid Stimulating Hormone (TSH) 7.44 H 0.55-4.78 uIU/mL Free Thyroxine Index Pending Thyroxine (T4) Pending Triiodothyronine (T3) Uptake Pending Current Medications Medications (Trade) Dose Ordered Sig/Cornell Route Start Time Stop Time Status Last Admin Calcium Gluconate/ Sodium Chloride 50 ml @ 100 mls/hr Q30M IV 11/10/24 23:30 11/11/24 00:29 DC 11/11/24 00:11 Sodium Chloride 1,000 ml @ 60 mls/hr [id number] IV 11/11/24 00:15 11/11/24 00:44 Methocarbamol (Robaxin) 1,000 mg ONCE ONCE PO 11/11/24 00:30 11/11/24 00:31 DC 11/11/24 00:44 CHEST RADIOGRAPH Indication: cp Technique: Single frontal view of the chest was obtained COMPARISON: XY CHEST PORTABLE on DOS: 01/13/24, CHEST PORTABLE on DOS: 10/28/21, CT ANGIO CHEST CONTRAST on DOS: 06/24/21, CHEST PORTABLE on DOS: 06/24/21 FINDINGS: Lines and Tubes: None Lungs: Clear Pleura: No effusion. No pneumothorax. Cardiomediastinal contours: Unremarkable Bones: Unremarkable IMPRESSION: 1. No acute disease. X-Ray, Labs, Meds, VS Comment 34-year-old female with a history of thyroidectomy and accidental partial pa rathyroidectomy brought in by private car for evaluation of tetany, chest pain and shortness of breath. Vitals remarkable for respiratory rate 25, BP 159/113 Exam remarkable for tetany in both upper extremities, mild respiratory distress Rhythm strip independently interpreted by me: Sinus tach, rate 111, no ectopy. Chest x-ray independently interpreted by me: No acute disease CBC unremarkable, basic metabolic panel remarkable for calcium 5.5,, BNP and troponin negative, thyroid panel pending Patient treated with the following in the ED: Calcium gluconate 1 g IV with improvement of her symptoms. Plan is to admit the patient for correction of hypocalcemia and endocrinology evaluation. Time of 1ST Reevaluation: 22:51 Reevaluation 1ST: Unchanged Patient Education/Counseling: Diagnosis, Treatment Family Education/Counseling: Diagnosis, Treatment SEPSIS Sepsis Screen Date sepsis recognized/suspect: Nov 10, 2024 Time Sepsis recognized/suspect: 2199 Recent Procedure: No On Antibiotic Therapy: No Respiratory Rate >20: No Heart Rate >90: No Temp<36 C (96.8 F) or >38.3 C: No SBP <90 or MAP <65 mmHG: No New Acute Mental Status Change: No Is the patient on CPAP, BIPAP,: No Physician Orders Chest Portable (11/10/24 22:24) Thyroid Panel (11/10/24 22:24) Complete Blood Count (11/11/24 04:00) Comprehensive Metabolic Panel (11/11/24 04:00) Levothyroxine Tablet (Synthroid Tablet) (11/11/24 06:00) Calcium W/Vit D Tablet (Oscal W/Vit D Ta (11/11/24 08:00) Allergies (11/11/24 00:14) Code Status (11/11/24 00:14) Sodium Chloride 0.9% (11/11/24 00:15) Oxygen Per Hour (11/11/24 00:14) Hydrocodone-Acet 5/325mg Tab ([place] 5/32 (11/11/24 00:15) Ondansetron Hcl (Zofran) (11/11/24 00:15) Docusate Sodium Capsule (Colace Capsule) (11/11/24 00:15) Complete Blood Count (11/12/24 04:00) Comprehensive Metabolic Panel (11/12/24 04:00) Cardiac Diet-2gna,Lofat,Lochol (11/11/24 Breakfast) Condition: Serious (11/11/24 00:14) Acetaminophen Tablet (Tylenol Tablet) (11/11/24 00:15) Bedrest With Bathroom Privileg (11/11/24 00:14) Sequential Compression Device (11/11/24 ) Vital Signs Date Time Temp Pulse Resp B/P (MAP) Pulse Ox O2 Delivery O2 Flow Rate FiO2 11/11/24 02:00 67 14 107/71 (83) 98 11/11/24 01:09 98.3 64 11 123/75 (91) 98 98.3 11/11/24 00:00 64 11 123/75 (91) 98 11/10/24 22:33 98.9 86 14 129/83 (98) 98 98.9 11/10/24 22:30 98 Room Air* 0 21 11/10/24 22:09 111 11/10/24 22:04 98.1 95 25 159/113 100 98.1 Laboratory Tests Test 11/10/24 22:36 White Blood Count 7.4 10^3/uL (4.4-10.8) Medications Medications Dose Ordered Sig/Cornell Route Start Time Stop Time Status Last Admin Dose Admin Calcium Gluconate/ Sodium Chloride 50 ml @ 100 mls/hr Q30M IV 11/10/24 23:30 11/11/24 00:29 DC 11/11/24 00:11 Methocarbamol 1,000 mg ONCE ONCE PO 11/11/24 00:30 11/11/24 00:31 DC 11/11/24 00:44 Sodium Chloride 1,000 ml @ 60 mls/hr [id number] IV 11/11/24 00:15 11/11/24 00:44 Departure 1 Departure Time of Disposition: 23:33 Impression: Primary Impression: Hypocalcemia Additional Impressions: Tetany due to hypocalcemia Acute chest pain Disposition: ADMITTED INPATIENT Admit to: Tele Condition: Guarded Critical Care Note Critical Care Time?: Yes (45 min-critical care time only) Critical care comment: Critical care time including multiple bedside re-evaluations, review of lab and imaging studies, and discussion of the case with the admitting provider. Pat ient is high risk for metabolic and/or hemodynamic decompensation. Stability Stability form required: No Heart Score Heart Score: Heart Score Response (Comments) Value History Moderate Suspicious 1 EKG Repolarization Disturb 1 Age <45 0 Risk Factors No known risk factors 0 Troponin Normal limit 0 Total 2 I personally scribed for JAVAN ENGLE MD ([email or web address]) on 11/10/24 at 22:53. Electronically submitted by Jed Mooney ([facility]). I personally scribed for JAVAN ENGLE MD ([email or web address]) on 11/10/24 at 23:05. Electronically submitted by Jed Mooney ([facility]). I personally scribed for JAVAN ENGLE MD ([email or web address]) on 11/10/24 at 23:39. Electronically submitted by Jed Mooney ([facility]). JAVAN ENGLE MD Nov 10, 2024 22:53
[2024-11-10 23:02] LABS: Hematocrit 34.6 % (36.0-46.0); Hemoglobin 11.5 g/dL (12.2-16.2); Mean Corpuscular Hemoglobin 26.9 pg (28.0-32.0); Mean Corpuscular Volume 81.1 fL (80.0-100.0); Nucleated Red Blood Cells % 0.0 %
[2024-11-10 23:14] LABS: Chloride 100 mmol/L (98-107); Potassium 3.8 mmol/L (3.5-5.1); Sodium 139 mmol/L (136-145)
[2024-11-10 23:15] LABS: Anion Gap 14 (5-15); Carbon Dioxide 25 mmol/L (20-31)
[2024-11-10 23:20] LABS: BUN/Creatinine Ratio 10.8 (10.0-20.0)
[2024-11-10 23:21] LABS: Blood Urea Nitrogen 8 mg/dL (9-23); Glucose 127 mg/dL (74-106)
[2024-11-10 23:23] LABS: Calcium 5.5 mg/dL (8.7-10.4)
--- NOTE | 2024-11-10 23:25 | DVH ---
CHEST RADIOGRAPH Indication: cp Technique: Single frontal view of the chest was obtained COMPARISON: XY CHEST PORTABLE on DOS: 01/13/24, CHEST PORTABLE on DOS: 10/28/21, CT ANGIO CHEST CONTRA ST on DOS: 06/24/21, CHEST PORTABLE on DOS: 06/24/21 FINDINGS: Lines and Tubes: None Lungs: Clear Pleura: No effusion. No pneumothorax. Cardiomediastinal contours: Unremarkable Bones: Unremarkable IMPRESSION: 1. No acute disease.
[2024-11-10] MEDS: CALCIUM GLUC 1,000mg/50ml-NS 50 ML IV SCH (23:34)
[2024-11-11] MEDS ORDERED: DOCUSATE SOD 100 MG CAP PO PRN (00:15)
[2024-11-11] MEDS ORDERED: ACETAMINOPHEN 325 MG TAB PO PRN (00:15)
[2024-11-11] MEDS: METHOCARBAMOL 500 MG TAB PO ONE (00:44)
[2024-11-11] MEDS: SODIUM CHLORIDE 0.9% 1,000 ML IV SCH (00:44)
[2024-11-11 01:31] LABS: Urine Protein, UAD Negative (Negative)
--- NOTE | 2024-11-11 03:06 | DVHHP2 ---
History of Present Illness Reason for Visit: Acute chest pain History of Present Illness The patient is a 34-year-old female with past medical history of thyroid disease thyroidectomy, accidental partial parathyroidectomy, and hypocalcemia who presented to [facility] ED for evaluation of tetany. Patient reports she has been experiencing bilateral upper extremity tetany, difficulty speaking, chest pain, and shortness of breath. Patient was seen and evaluated in the ED, laboratory data shows WBC 7.4, platelets 276, sodium 139, potassium 3.8, BUN 8, creatinine 0.74, glucose 127, calcium 5.5, BNP 4.83, troponin 3, blood pressure 129/83, heart rate 86, temperature 98.9 F, O2 saturation 98% room air. Chest x- ray show no acute disease. Patient was given calcium IV, please see medication orders section in the computer. On my assessment, patient denied chest pain at this moment, no headache, no dizziness, currently on oxygen, no diaphoresis, no nausea, no vomiting, no fever, no chills. Patient was admitted for further evaluation and medical management. Past Medical History Thyroid, Hypocalcemia Past Surgical History Thyroidectomy, accidental partial parathyroidectomy Family History Reviewed, noncontributory to the management of this case. Past Social History The patient lives at home, denies smoking, drinks alcohol occasionally, denies illicit drugs abuse. Review of Systems Constitutional: No: Fever, Chills, Sweats, Weakness, Malaise, Other Eyes: No: Pain, Vision change, Conjunctivae inflammation, Eyelid inflammation, Other, Redness ENT: Other (Jaw locks); No: Ear pain, Ear discharge, Nose pain, Nose discharge, Nose congestion, Mouth pain, Mouth swelling, Throat pain, Throat swelling Respiratory: Shortness of breath, Other (SOB at rest); No: Cough, Dry, SOB with excertion, Wheezing, Hemoptysis, Pleuritic Pain, Sputum, Wheezing Cardiovascular: Chest Pain; No: Palpitations, Orthopnea, Paroxysmal Noc. Dyspnea, Edema, Lt Headedness, Other Gastrointestinal: No: Nausea, Vomiting, Abdominal Pain, Diarrhea, Constipation, Melena, Hematochezia, Other Genitourinary: No Dysuria, No Frequency, No Incontinence, No Hematuria, No Retention, No Other Musculoskeletal: No: other, neck pain, shoulder pain, arm pain, back pain, hand pain, leg pain, foot pain Skin: No: Rash, Lesions, Jaundice, Bruising, Other Neurological: No: Weakness, Numbness, Incoordination, Change in speech, Confusion, Seizures, Other Allergies: Coded Allergies: NO KNOWN ALLERGIES (Unverified , 04/12/11) Medications Current Medications Medications Dose Ordered Sig/Cornell Route Start Time Stop Time Status Last Admin Dose Admin Levothyroxine Sodium 200 mcg QAM@0600 PO 11/11/24 06:00 Calcium/Vitamin D 1 tab BIDWM PO 11/11/24 08:00 Sodium Chloride 1,000 ml @ 60 mls/hr [id number] IV 11/11/24 00:15 11/11/24 00:44 60 MLS/HR Acetaminophen/ Hydrocodone Bitart 1 tab Q4HP PRN PO 11/11/24 00:15 Ondansetron HCl 4 mg Q4HP PRN IV 11/11/24 00:15 Docusate Sodium 100 mg BIDPRN PRN PO 11/11/24 00:15 Acetaminophen 650 mg Q6HP PRN PO 11/11/24 00:15 Exam Vital Signs Vital Signs Date Time Temp Pulse Resp B/P (MAP) Pulse Ox O2 Delivery O2 Flow Rate FiO2 11/11/24 02:00 67 14 107/71 (83) 98 11/11/24 01:09 98.3 98.3 11/10/24 22:30 Room Air* 0 21 General Appearance: Alert, Oriented X3, Cooperative, No acute distress HEENT: Atraumatic, PERRLA, EOMI, Mucous membr. moist/pink Respiratory: Clear to auscultation, Normal air movement Cardiovascular: Regular rate, Normal S1, Normal S2, No murmurs Abdominal: Normal bowel sounds, Soft, No tenderness, No hepatospenomegaly, No masses Extremities: No clubbing, No cyanosis, No edema, Normal pulses, No tenderness/swelling Skin: No rashes, No breakdown, No significant lesion Neuro: Normal speech, Normal tone, Sensation intact, Cranial nerves 3-12 NL, Reflexes 2+, Other (Weakness) Psych/Mental Status: Mental status NL, Mood NL Labs/Xrays Labs Test 11/11/24 01:08 11/11/24 01:07 11/10/24 23:20 11/10/24 22:36 Range/Units Urine Test Negative Negative Urine Color Straw Yellow Urine Clarity Clear Clear Urine pH 7.5 5.0-9.0 Urine Specific [place] 1.008 1.001-1.035 Urine Protein Negative Negative Urine Ketones Negative Negative Urine Blood Negative Negative /uL Urine Nitrite Negative Negative Urine Bilirubin Negative Negative Urine Urobilinogen Normal Negative mg/dL Urine Leukocyte Esterase Negative Negative /uL Urine Glucose Normal Normal mg/dL Troponin I High Sensitivity 3 L </=34 ng/L White Blood Count 7.4 4.4-10.8 10^3/uL Red Blood Count 4.27 4.0-5.20 10^6/uL Hemoglobin 11.5 L 12.2-16.2 g/dL Hematocrit 34.6 L 36.0-46.0 % Mean Corpuscular Volume 81.1 80.0-100.0 fL Mean Corpuscular Hemoglobin 26.9 L 28.0-32.0 pg Mean Corpuscular Hemoglobin Concent 33.1 32.0-36.0 g/dL Red Cell Distribution Width 14.6 H 11.8-14.3 % Platelet Count 276 140-450 10^3/uL Mean Platelet Volume 8.7 6.9-10.8 fL Neutrophils (%) (Auto) 52.3 37.0-80.0 % Lymphocytes (%) (Auto) 39.4 10.0-50.0 % Monocytes (%) (Auto) 6.8 0.0-12.0 % Eosinophils (%) (Auto) 0.4 0.0-7.0 % Basophils (%) (Auto) 1.1 0.0-2.0 % Neutrophils # (Auto) 3.9 1.6-8.6 10 ^3/uL Lymphocytes # (Auto) 2.9 0.4-5.4 10 ^3/uL Monocytes # (Auto) 0.5 0-1.3 10 ^3/uL Eosinophils # (Auto) 0 0-0.8 10 ^3/uL Basophils # (Auto) 0.1 0-0.2 10 ^3/uL Nucleated Red Blood Cells 0.0 % Sodium Level 139 136-145 mmol/L Potassium Level 3.8 3.5-5.1 mmol/L Chloride Level 100 98-107 mmol/L Carbon Dioxide Level 25 20-31 mmol/L Anion Gap 14 5-15 Blood Urea Nitrogen 8 L 9-23 mg/dL Creatinine 0.74 0.550-1.02 mg/dL Glomerular Filtration Rate Calc 107 >90 mL/min BUN/Creatinine Ratio 10.8 10.0-20.0 Serum Glucose 127 H 74-106 mg/dL Calcium Level 5.5 *L 8.7-10.4 mg/dL Magnesium Level 1.4 L 1.6-2.6 mg/dL B-Type Natriuretic Peptide 4.83 0-100 pg/mL Thyroid Stimulating Hormone (TSH) 7.44 H 0.55-4.78 uIU/mL PATIENT: DAYAN CARVALHO ANNACCT: [id number] UNIT: [id number] : 1990 LOC: ER ROOM / BED: / AGE / SEX: 34 / F ADM STATUS: REG ER SERVICE 23 ORDERING PHYSICIAN: JAVAN ENGLE MD PROCEDURE(s): CXRP - CHEST PORTABLE REASON: cp ORDER NUMBER(s): [id number], ACCESSION NUMBER(s): [id number] CHEST RADIOGRAPH Indication: cp Technique: Single frontal view of the chest was obtained COMPARISON: XY CHEST PORTABLE on DOS: 01/13/24, CHEST PORTABLE on DOS: 10/28/21, CT ANGIO CHEST CONTRAST on DOS: 06/24/21, CHEST PORTABLE on DOS: 06/24/21 FINDINGS: Lines and Tubes: None Lungs: Clear Pleura: No effusion. No pneumothorax. Cardiomediastinal contours: Unremarkable Bones: Unremarkable IMPRESSION: 1. No acute disease. SEPSIS Sepsis Screen Date sepsis recognized/suspect: Nov 11, 2024 Time Sepsis recognized/suspect: 0108 Recent Procedure: No On Antibiotic Therapy: No Respiratory Rate >20: No Heart Rate >90: No Temp<36 C (96.8 F) or >38.3 C: No SBP <90 or MAP <65 mmHG: No New Acute Mental Status Change: No Is the patient on CPAP, BIPAP,: No Physician Orders Chest Portable (11/10/24 22:24) Thyroid Panel (11/10/24 22:24) Complete Blood Count (11/11/24 04:00) Comprehensive Metabolic Panel (11/11/24 04:00) Levothyroxine Tablet (Synthroid Tablet) (11/11/24 06:00) Calcium W/Vit D Tablet (Oscal W/Vit D Ta (11/11/24 08:00) Allergies (11/11/24 00:14) Code Status (11/11/24 00:14) Sodium Chloride 0.9% (11/11/24 00:15) Oxygen Per Hour (11/11/24 00:14) Hydrocodone-Acet 5/325mg Tab ([place] 5/32 (11/11/24 00:15) Ondansetron Hcl (Zofran) (11/11/24 00:15) Docusate Sodium Capsule (Colace Capsule) (11/11/24 00:15) Complete Blood Count (11/12/24 04:00) Comprehensive Metabolic Panel (11/12/24 04:00) Cardiac Diet-2gna,Lofat,Lochol (11/11/24 Breakfast) Condition: Serious (11/11/24 00:14) Acetaminophen Tablet (Tylenol Tablet) (11/11/24 00:15) Bedrest With Bathroom Privileg (11/11/24 00:14) Sequential Compression Device (11/11/24 ) Vital Signs Date Time Temp Pulse Resp B/P (MAP) Pulse Ox O2 Delivery O2 Flow Rate FiO2 11/11/24 02:00 67 14 107/71 (83) 98 11/11/24 01:09 98.3 64 11 123/75 (91) 98 98.3 11/11/24 00:00 64 11 123/75 (91) 98 11/10/24 22:33 98.9 86 14 129/83 (98) 98 98.9 11/10/24 22:30 98 Room Air* 0 21 11/10/24 22:09 111 11/10/24 22:04 98.1 95 25 159/113 100 98.1 Laboratory Tests Test 11/10/24 22:36 White Blood Count 7.4 10^3/uL (4.4-10.8) Medications Medications Dose Ordered Sig/Cornell Route Start Time Stop Time Status Last Admin Dose Admin Calcium Gluconate/ Sodium Chloride 50 ml @ 100 mls/hr Q30M IV 11/10/24 23:30 11/11/24 00:29 DC 11/11/24 00:11 100 MLS/HR Methocarbamol 1,000 mg ONCE ONCE PO 11/11/24 00:30 11/11/24 00:31 DC 11/11/24 00:44 1,000 MG Sodium Chloride 1,000 ml @ 60 mls/hr [id number] IV 11/11/24 00:15 11/11/24 00:44 60 MLS/HR Assessment/Plan Assessment/Plan Acute chest pain Hypocalcemia Tetany due to hypocalcemia Plan 1. Admit to telemetry unit 2. Breathing treatment 3. Pain control management 4. Management of fluids and electrolytes 5. Consultation for hospitalist 6. Diagnostic tests chest x-ray 7. DVT prophylaxis-on SCDs 8. Repeat labs CBC, CMP in a.m. 9. Continue with current medical management 10. Treatment plan discussed with patient and RN. Patient verbalized understanding. Plan discussed with: Patient, Other (RN) My Orders Orders - CARMITA BENITEZ DNP Procedure Category Date Status Time Complete Blood Count LAB 11/11/24 Logged 04:00 Comprehensive LAB 11/11/24 Logged Metabolic Panel 04:00 Levothyroxine Tablet PHA 11/11/24 In Process (Synthroid Tablet) 06:00 Calcium W/Vit D PHA 11/11/24 In Process Tablet (Oscal W/Vit D 08:00 Allergies EDGAR 11/11/24 In Process 00:14 Code Status CODE 11/11/24 Transmitted 00:14 Sodium Chloride 0.9% PHA 11/11/24 In Process 00:15 Oxygen Per Hour RT 11/11/24 Transmitted 00:14 Hydrocodone-Acet PHA 11/11/24 In Process 5/325mg Tab ([place] 00:15 Ondansetron Hcl PHA 11/11/24 In Process (Zofran) 00:15 Docusate Sodium PHA 11/11/24 In Process Capsule (Colace 00:15 Complete Blood Count LAB 11/12/24 Verified 04:00 Comprehensive LAB 11/12/24 Verified Metabolic Panel 04:00 Cardiac DIET 11/11/24 Transmitted Diet-2gna,Lofat,Lochol Breakfast Condition: Serious EDGAR 11/11/24 In Process 00:14 Acetaminophen Tablet PHA 11/11/24 In Process (Tylenol Tablet) 00:15 Bedrest With Bathroom EDGAR 11/11/24 In Process Privileg 00:14 Sequential EDGAR 11/11/24 In Process Compression Device Problem List: (1) Acute chest pain (2) Hypocalcemia (3) Tetany due to hypocalcemia Date of Service: Nov 11, 2024 Billing Provider: CARMITA BENITEZ DNP Common Visit Codes: [id number] INP/OBS CARE (HIGH) CARMITA BENITEZ DNP Nov 11, 2024 03:06
[2024-11-11] MEDS ORDERED: MORPHINE SULFATE INJ 2 MG/ml SYRG IV PRN (03:15)
[2024-11-11] MEDS ORDERED: NITROGLYCERIN 0.4 MG SL TAB SL PRN (03:15)
[2024-11-11] MEDS: LEVOTHYROXINE SODIUM 100 MCG TAB PO SCH (05:11)
[2024-11-11 07:35] VITALS: O2SAT 98
[2024-11-11 08:16] LABS: Hematocrit 35.9 % (36.0-46.0); Hemoglobin 12.1 g/dL (12.2-16.2); Mean Corpuscular Hemoglobin 27.2 pg (28.0-32.0); Mean Corpuscular Volume 80.8 fL (80.0-100.0); Nucleated Red Blood Cells % 0.0 %
[2024-11-11] MEDS: CALCIUM W/VIT D (600MG/400IU) TAB PO SCH (08:29)
[2024-11-11 08:34] LABS: Alanine Aminotransferase 12 U/L (7-40); Albumin 4.8 g/dL (3.2-4.8); Alkaline Phosphatase 62 U/L (46-116); Anion Gap 12 (5-15); BUN/Creatinine Ratio 9.1 (10.0-20.0); Bilirubin, Total 0.5 mg/dL (0.2-1.0); Carbon Dioxide 27 mmol/L (20-31); Chloride 102 mmol/L (98-107); Glucose 86 mg/dL (74-106); Potassium 3.6 mmol/L (3.5-5.1); Sodium 141 mmol/L (136-145); Total Protein 7.4 g/dL (5.7-8.2)
[2024-11-11 08:40] LABS: Blood Urea Nitrogen 6 mg/dL (9-23); Calcium 7.2 mg/dL (8.7-10.4)
[2024-11-11] MEDS: ONDANSETRON HCL 4 MG/2 ML VIAL IV PRN (10:53)
[2024-11-11] MEDS: HYDROcodone-ACET 5/325MG TAB PO PRN ×2 (11:10→17:53)
[2024-11-11] MEDS ORDERED: HYDROcodone-ACET 5/325MG TAB PO PRN (11:15)
--- NOTE | 2024-11-11 12:58 | DVHPN2 ---
Reviewed: Care Plan, H&P, Labs, Medications, Previous Orders, Radiology Changes from previous H/P or p: No Changes Eyes: No Pain, No Vision change, No Conjunctivae inflammation, No Eyelid inflammation, No Other, No Redness ENT: No Ear pain, No Ear discharge, No Nose pain, No Nose discharge, No Nose congestion, No Mouth pain, No Mouth swelling, No Throat pain, No Throat swelling; Other (Jaw locks) Cardiovascular: Chest Pain; No Palpitations, No Orthopnea, No Paroxysmal Noc. Dyspnea, No Edema, No Lt Headedness, No Other Respiratory: No Cough, No Dry; Shortness of breath; No SOB with excertion, No Wheezing, No Hemoptysis, No Pleuritic Pain, No Sputum; Other (SOB at rest) Gastrointestinal: No Nausea, No Vomiting, No Abdominal Pain, No Diarrhea, No Constipation, No Melena, No Hematochezia, No Other Genitourinary: No Dysuria, No Frequency, No Incontinence, No Hematuria, No Retention, No Other Musculoskeletal: No other, No neck pain, No shoulder pain, No arm pain, No back pain, No hand pain, No leg pain, No foot pain Skin: No Rash, No Lesions, No Jaundice, No Bruising, No Other Objective Vitals Vital Signs Date Time Temp Pulse Resp B/P (MAP) Pulse Ox O2 Delivery O2 Flow Rate FiO2 11/11/24 12:00 57 11/11/24 12:00 11 100/67 (78) 95 11/11/24 09:00 99.0 99.0 11/11/24 07:35 Room Air* 0 21 Medications Current Medications Medications Dose Ordered Sig/Cornell Route Start Time Stop Time Status Last Admin Dose Admin Levothyroxine Sodium 200 mcg QAM@0600 PO 11/11/24 06:00 11/11/24 05:11 200 MCG Calcium/Vitamin D 1 tab BIDWM PO 11/11/24 08:00 11/11/24 08:29 1 TAB Sodium Chloride 1,000 ml @ 60 mls/hr [id number] IV 11/11/24 00:15 11/11/24 00:44 60 MLS/HR Ondansetron HCl 4 mg Q4HP PRN IV 11/11/24 00:15 11/11/24 10:53 4 MG Docusate Sodium 100 mg BIDPRN PRN PO 11/11/24 00:15 Acetaminophen 650 mg Q6HP PRN PO 11/11/24 00:15 Nitroglycerin 0.4 mg Q5MINP PRN SL 11/11/24 03:15 Morphine Sulfate 2 mg Q30M PRN IV 11/11/24 03:15 Acetaminophen/ Hydrocodone Bitart 1 tab Q6HPRN PRN PO 11/11/24 17:00 Laboratory Results Laboratory Tests 11/11/24 07:47 Chemistry Test 11/10/24 22:36 11/11/24 07:47 Calcium Level 5.5 mg/dL (8.7-10.4) *L 7.2 mg/dL (8.7-10.4) L Magnesium Level 1.4 mg/dL (1.6-2.6) L Albumin 4.8 g/dL (3.2-4.8) Total Protein 7.4 g/dL (5.7-8.2) Cardiac Markers Test 11/10/24 22:36 B-Type Natriuretic Peptide 4.83 pg/mL (0-100) LFT Test 11/11/24 07:47 Alanine Aminotransferase (ALT) 12 U/L (7-40) Alkaline Phosphatase 62 U/L (46-116) Aspartate Amino Transferase (AST) 27 U/L (13-40) Total Bilirubin 0.5 mg/dL (0.2-1.0) HgA1c, TSH Test 11/10/24 22:36 Thyroid Stimulating Hormone (TSH) 7.44 uIU/mL (0.55-4.78) H Urinalysis Test 11/11/24 01:07 11/11/24 01:08 Urine Color Straw (Yellow) Urine Clarity Clear (Clear) Urine pH 7.5 (5.0-9.0) Urine Specific [place] 1.008 (1.001-1.035) Urine Protein Negative (Negative) Urine Ketones Negative (Negative) Urine Blood Negative /uL (Negative) Urine Nitrite Negative (Negative) Urine Bilirubin Negative (Negative) Urine Urobilinogen Normal mg/dL (Negative) Urine Leukocyte Esterase Negative /uL (Negative) Urine Glucose Normal mg/dL (Normal) Urine Test Negative (Negative) Labs and/or images reviewed: Labs reviewed by me, Image(s) reviewed by me Assessment/Plan Assessment/Plan Stat any secondary to hypocalcemia Acute hypocalcemia with calcium 5.5 improved with IV calcium History of hypothyroidism status post thyroidectomy History of accidental parathyroidectomy resulting in hypocalcemia Time spent 35 minutes Plan discussed with: Patient My Orders Orders - SIMON RUEDA MD Procedure Category Date Status Time Hydrocodone-Acet PHA 11/11/24 In Process 5/325mg Tab ([place] 17:00 Date of Service: Nov 11, 2024 Billing Provider: SIMON RUEDA MD Common Visit Codes: [id number] INP/OBS CARE(HIGH) SIMON RUEDA MD Nov 11, 2024 12:57
[2024-11-11 19:33] VITALS: PULSE 74; RESP 20; O2SAT 97
[2024-11-11] MEDS: CALCIUM GLUC 1,000mg/50ml-NS 50 ML IV ONE ×2 (20:00→20:26)
[2024-11-11 22:48] VITALS: BP 102/72; PULSE 66; RESP 17; TEMP 97.7; O2SAT 99
[2024-11-11 22:52] VITALS: BP 102/72; PULSE 66; RESP 17; TEMP 97.7; O2SAT 99
[2024-11-12] VITALS (7 sets, daily range): BP systolic 63–115; BP diastolic 61–74; PULSE 56–71; RESP 16–18; TEMP 97.5–97.9; O2SAT 97–100
[2024-11-12 06:49] LABS: Hematocrit 35.2 % (36.0-46.0); Hemoglobin 11.9 g/dL (12.2-16.2); Mean Corpuscular Hemoglobin 27.4 pg (28.0-32.0); Mean Corpuscular Volume 81.1 fL (80.0-100.0); Nucleated Red Blood Cells % 0.1 %
[2024-11-12 07:06] LABS: Albumin 4.6 g/dL (3.2-4.8); Alkaline Phosphatase 63 U/L (46-116); Anion Gap 10 (5-15); BUN/Creatinine Ratio 11.3 (10.0-20.0); Blood Urea Nitrogen 9 mg/dL (9-23); Carbon Dioxide 28 mmol/L (20-31); Chloride 104 mmol/L (98-107); Glucose 86 mg/dL (74-106); Potassium 3.9 mmol/L (3.5-5.1); Sodium 142 mmol/L (136-145); Total Protein 7.3 g/dL (5.7-8.2)
[2024-11-12 07:07] LABS: Alanine Aminotransferase 9 U/L (7-40); Bilirubin, Total 0.5 mg/dL (0.2-1.0); Calcium 7.1 mg/dL (8.7-10.4)
--- NOTE | 2024-11-12 10:45 | DVHPN2 ---
Reviewed: Care Plan, H&P, Labs, Medications, Previous Orders, Radiology Changes from previous H/P or p: No Changes Eyes: No Pain, No Vision change, No Conjunctivae inflammation, No Eyelid inflammation, No Other, No Redness ENT: No Ear pain, No Ear discharge, No Nose pain, No Nose discharge, No Nose congestion, No Mouth pain, No Mouth swelling, No Throat pain, No Throat swelling; Other (Jaw locks) Cardiovascular: Chest Pain; No Palpitations, No Orthopnea, No Paroxysmal Noc. Dyspnea, No Edema, No Lt Headedness, No Other Respiratory: No Cough, No Dry; Shortness of breath; No SOB with excertion, No Wheezing, No Hemoptysis, No Pleuritic Pain, No Sputum; Other (SOB at rest) Gastrointestinal: No Nausea, No Vomiting, No Abdominal Pain, No Diarrhea, No Constipation, No Melena, No Hematochezia, No Other Genitourinary: No Dysuria, No Frequency, No Incontinence, No Hematuria, No Retention, No Other Musculoskeletal: No other, No neck pain, No shoulder pain, No arm pain, No back pain, No hand pain, No leg pain, No foot pain Skin: No Rash, No Lesions, No Jaundice, No Bruising, No Other Objective Vitals Vital Signs Date Time Temp Pulse Resp B/P (MAP) Pulse Ox O2 Delivery O2 Flow Rate FiO2 11/12/24 08:48 97.5 71 16 63/61 (62) 97 97.5 11/11/24 22:52 Room Air* 0 21 Intake/Output Intake and Output 11/12/24 07:00 Intake Total 200 ml Balance 200 ml Intake Oral 150 ml IV Total 50 ml Medications Current Medications Medications Dose Ordered Sig/[place] Route Start Time Stop Time Status Last Admin Dose Admin Levothyroxine Sodium 200 mcg QAM@0600 PO 11/11/24 06:00 11/12/24 05:44 200 MCG Calcium/Vitamin D 1 tab BIDWM PO 11/11/24 08:00 11/12/24 09:11 1 TAB Sodium Chloride 1,000 ml @ 60 mls/hr [id number] IV 11/11/24 00:15 11/11/24 23:02 60 MLS/HR Ondansetron HCl 4 mg Q4HP PRN IV 11/11/24 00:15 11/11/24 17:52 4 MG Docusate Sodium 100 mg BIDPRN PRN PO 11/11/24 00:15 Acetaminophen 650 mg Q6HP PRN PO 11/11/24 00:15 Nitroglycerin 0.4 mg Q5MINP PRN SL 11/11/24 03:15 Morphine Sulfate 2 mg Q30M PRN IV 11/11/24 03:15 Acetaminophen/ Hydrocodone Bitart 1 tab Q6HPRN PRN PO 11/11/24 17:00 11/12/24 05:52 1 TAB Laboratory Results Laboratory Tests 11/12/24 05:44 Chemistry Test 11/12/24 05:44 Albumin 4.6 g/dL (3.2-4.8) Calcium Level 7.1 mg/dL (8.7-10.4) L Total Protein 7.3 g/dL (5.7-8.2) LFT Test 11/12/24 05:44 Alanine Aminotransferase (ALT) 9 U/L (7-40) Alkaline Phosphatase 63 U/L (46-116) Aspartate Amino Transferase (AST) 21 U/L (13-40) Total Bilirubin 0.5 mg/dL (0.2-1.0) Urinalysis Test 11/11/24 01:07 11/11/24 01:08 Urine Color Straw (Yellow) Urine Clarity Clear (Clear) Urine pH 7.5 (5.0-9.0) Urine Specific [place] 1.008 (1.001-1.035) Urine Protein Negative (Negative) Urine Ketones Negative (Negative) Urine Blood Negative /uL (Negative) Urine Nitrite Negative (Negative) Urine Bilirubin Negative (Negative) Urine Urobilinogen Normal mg/dL (Negative) Urine Leukocyte Esterase Negative /uL (Negative) Urine Glucose Normal mg/dL (Normal) Urine Test Negative (Negative) Labs and/or images reviewed: Labs reviewed by me, Image(s) reviewed by me Assessment/Plan Assessment/Plan [place] secondary to hypocalcemia Acute hypocalcemia with calcium 5.5 improved to 7.1 with repeated IV calcium injections and patient is now asymptomatic History of hypothyroidism status post thyroidectomy History of accidental parathyroidectomy resulting in hypocalcemia Time spent 35 minutes MARGARET Alfred at bedside Plan discussed with: Patient My Orders Orders - SIMON RUEDA MD Procedure Category Date Status Time Hydrocodone-Acet PHA 11/11/24 In Process 5/325mg Tab ([place] 17:00 Date of Service: Nov 12, 2024 Billing Provider: SIMON RUEDA MD Common Visit Codes: [id number] INP/OBS CARE(HIGH) SIMON RUEDA MD Nov 12, 2024 10:45
--- NOTE | 2024-11-12 10:49 | DVHDS2 ---
Discharge Summary Date of Admission Nov 11, 2024 at 03:04 Date of Discharge: Nov 12, 2024 Admitting Diagnosis Carpopedal spasm Wounds: None Labs/Diagnostic Data: Laboratory Results Test 11/12/24 05:44 11/11/24 01:08 11/11/24 01:07 11/10/24 23:20 White Blood Count 4.8 10^3/uL (4.4-10.8) Red Blood Count 4.35 10^6/uL (4.0-5.20) Hemoglobin 11.9 g/dL (12.2-16.2) Hematocrit 35.2 % (36.0-46.0) Mean Corpuscular Volume 81.1 fL (80.0-100.0) Mean Corpuscular Hemoglobin 27.4 pg (28.0-32.0) Mean Corpuscular Hemoglobin Concent 33.8 g/dL (32.0-36.0) Red Cell Distribution Width 14.3 % (11.8-14.3) Platelet Count 247 10^3/uL (140-450) Mean Platelet Volume 8.8 fL (6.9-10.8) Neutrophils (%) (Auto) 56.0 % (37.0-80.0) Lymphocytes (%) (Auto) 35.2 % (10.0-50.0) Monocytes (%) (Auto) 7.2 % (0.0-12.0) Eosinophils (%) (Auto) 0.8 % (0.0-7.0) Basophils (%) (Auto) 0.8 % (0.0-2.0) Neutrophils # (Auto) 2.7 10 ^3/uL (1.6-8.6) Lymphocytes # (Auto) 1.7 10 ^3/uL (0.4-5.4) Monocytes # (Auto) 0.3 10 ^3/uL (0-1.3) Eosinophils # (Auto) 0 10 ^3/uL (0-0.8) Basophils # (Auto) 0 10 ^3/uL (0-0.2) Nucleated Red Blood Cells 0.1 % Sodium Level 142 mmol/L (136-145) Potassium Level 3.9 mmol/L (3.5-5.1) Chloride Level 104 mmol/L (98-107) Carbon Dioxide Level 28 mmol/L (20-31) Anion Gap 10 (5-15) Blood Urea Nitrogen 9 mg/dL (9-23) Creatinine 0.80 mg/dL (0.550-1.02) Glomerular Filtration Rate Calc 98 mL/min (>90) BUN/Creatinine Ratio 11.3 (10.0-20.0) Serum Glucose 86 mg/dL (74-106) Calcium Level 7.1 mg/dL (8.7-10.4) Total Bilirubin 0.5 mg/dL (0.2-1.0) Aspartate Amino Transferase (AST) 21 U/L (13-40) Alanine Aminotransferase (ALT) 9 U/L (7-40) Alkaline Phosphatase 63 U/L (46-116) Total Protein 7.3 g/dL (5.7-8.2) Albumin 4.6 g/dL (3.2-4.8) Urine Test Negative (Negative) Urine Color Straw (Yellow) Urine Clarity Clear (Clear) Urine pH 7.5 (5.0-9.0) Urine Specific [place] 1.008 (1.001-1.035) Urine Protein Negative (Negative) Urine Ketones Negative (Negative) Urine Blood Negative /uL (Negative) Urine Nitrite Negative (Negative) Urine Bilirubin Negative (Negative) Urine Urobilinogen Normal mg/dL (Negative) Urine Leukocyte Esterase Negative /uL (Negative) Urine Glucose Normal mg/dL (Normal) Troponin I High Sensitivity 3 ng/L (</=34) Test 11/10/24 22:36 Magnesium Level 1.4 mg/dL (1.6-2.6) B-Type Natriuretic Peptide 4.83 pg/mL (0-100) Thyroid Stimulating Hormone (TSH) 7.44 uIU/mL (0.55-4.78) Other Laboratory Tests 11/12/24 05:44 Brief Hx & Hospital Course: 34-year-old female who underwent thyroidectomy for hypothyroidism and had parathyroid removed accidentally, since then had recurrent episodes of hypocalcemia. Patient came in for tetany secondary to hypocalcemia of 5.5. Received repeated injections of IV calcium and calcium improved to 7.1 and patient is now asymptomatic. Discharged home and she will follow up with the primary Dr Consults/Reason for consult None Operations or Procedures None Condition at Discharge: Fair Final Diagnosis/Problems List [place] secondary to hypocalcemia Acute hypocalcemia with calcium 5.5 improved to 7.1 with repeated IV calcium injections and patient is now asymptomatic History of hypothyroidism status post thyroidectomy History of accidental parathyroidectomy resulting in hypocalcemia Discharge Disposition: Home Discharge Instruct/Medications Diet: Regular Activity: Light activity Follow Up/Referral: Follow up with your primary Dr Medications: None Scheduled Calcitriol (Calcitriol), 1 CAP PO TID, (Reported) Calcium Carbonate (Tums), 5,000 MG PO 5XD, (Reported) Levothyroxine Sodium (Levothyroxine Sodium), 1 TAB PO DAILY, (Reported) Magnesium Oxide (Magnesium Oxide), 200 MG PO DAILY, (Reported) Oxycodone W/ Acetaminophen (Endocet), 10-325 MG PO DAILY, (Reported) Scheduled PRN Cyclobenzaprine Hcl (Cyclobenzaprine Hcl), 1 TAB PO TID PRN 39 (Time taken for discharge summary 39 minutes) Discharge Statement: "Patient was advised to return to the ER or call 911 if any headaches, dizziness, shortness of breath, chest pain, abdominal pain, bleeding, fevers, or worsening of medical condition. Patient was counseled about treatment plan, medications, possible side effects, patientverbalized understanding. All questions were answered to the best of my ability. This discharge took greater then 30 minutes in planning, reviewing documentation, counseling the patient, and discussing with other team members." ASSESSMENT ASSESSMENT Hospital Course Improved Assessment [place] secondary to hypocalcemia Acute hypocalcemia with calcium 5.5 improved to 7.1 with repeated IV calcium injections and patient is now asymptomatic History of hypothyroidism status post thyroidectomy History of accidental parathyroidectomy resulting in hypocalcemia Date of Service: Nov 12, 2024 Billing Provider: SIMON RUEDA MD Common Visit Codes: [id number] DISCH DAY >30min SIMON RUEDA MD Nov 12, 2024 10:49
[2024-11-12] MEDS: CALCIUM GLUC 1,000mg/50ml-NS 50 ML IV ONE (11:22)
[2024-11-13 12:07] LABS: Free Thyroxine Index 3.2 (1.2-4.9)
== END 2024-11-12 13:20 | disposition home or self-care (01) | DRG 425 ==
LOC: ER 22:00 → OVERFLOW 11-11 03:04 → TELE-EAST 11-11 22:10
PROVIDERS: ADMIT Nurse Practitioner Family; ATTEND Nurse Practitioner Family
DX: E83.51 Hypocalcemia (principal); R07.89 Other chest pain; Z83.3 Family history of diabetes mellitus; Z82.49 Family history of ischemic heart disease and other diseases of the circulatory system; Z82.3 Family history of stroke; Z79.899 Other long term (current) drug therapy
CPT/HCPCS: 36415; 71045; 80048; 80053; 81003; 81025; 83735; 83880; 84443; 84484; 85025; 93005; 99291; G0378; J2405